=== PATIENT | male | born 1970 | race Caucasian/White ===

== ENCOUNTER 2016-09-18 | Emergency (ER) | payer BC ==
--- NOTE | 2016-09-18 17:03 | ED ---
General Adult HPI - General Chief complaint: Abdominal Pain Stated complaint: Kidney Stone Time Seen by Provider: 09/18/16 16:47 Source: patient, RN notes reviewed Mode of arrival: ambulatory Limitations: no limitations - History of Present Illness Initial comments: Chief complaint and history of present illness is a 46-year-old male to complaint of probably having passed a kidney stone just prior to coming to emergency room. The patient reports for the past several days to week been having left flank discomfort twice during this past week became diaphoretic with increased pain and nausea but no vomiting. Today he became significantly worse and he was coming to the hospital certainly at the hospital he reports the pain stopped. The patient did urinate in the urine sample he provided there was a small speck which could've been the stone. Patient otherwise denying any pain at this time no nausea no vomiting. - Related Data Previous Rx's Medication Instructions Recorded Ondansetron Odt [Zofran ODT] 4 mg PO Q8HR PRN #10 tab 09/18/16 Allergies Allergy/AdvReac Type Severity Reaction Status Date / Time Penicillins Allergy Rash/Hives Verified 09/18/16 16:53 Review of Systems ROS Statement: Those systems with pertinent positive or pertinent negative responses have been documented in the HPI. Review of systems no complaint of headache chest pain shows breath GI/ problems this time. All systems reviewed. Past medical problems significant only for kidney stones on several occasions. He also had bariatric surgery results 200 pounds in the past 2 years. The patient also a vegetarian. ALLERGIES to penicillin slight rash. Family history kidney stones. Patient denies smoking drinks alcohol rarely socially. ROS Other: All systems not noted in ROS Statement are negative. Past Medical History Additional Past Medical History / Comment(s): kidney stones History of Any Multi-Drug Resistant Organisms: None Reported Past Surgical History: Bariatric Surgery Past Psychological History: No Psychological Hx Reported Smoking Status: Never smoker Past Alcohol Use History: None Reported, Rare Past Drug Use History: None Reported General Exam - General Exam Comments Initial Comments: General: The patient is awake and alert, in no distress, and does not appear acutely ill. States he thinks the stone has passed into the bladder. Denying flank pain at this time. Vital signs temp 98.2 pulse 60 her story rate 16 pulse ox on percent room air blood pressure 130/82. Mildly elevated systolic and diastolic noted. The patient just passed a kidney stone. Cardiovascular: There is a regular rate and rhythm. No murmur, rub or gallop is appreciated. Respiratory: Lungs are clear to auscultation, respirations are non-labored, breath sounds are equal. No wheezes, stridor, rales, or rhonchi. Gastrointestinal: Soft, non-distended, non-tender abdomen without masses or organomegaly noted. There is no rebound or guarding present. No CVA tenderness. Bowel sounds are unremarkable. Back: There is no tenderness to palpation in the midline. There is no obvious deformity. No rashes noted. Limitations: no limitations Course Vital Signs 09/18/16 16:38 Temperature 98.2 F Pulse Rate 60 Respiratory 16 Rate Blood Pressure 130/82 O2 Sat by Pulse 100 Oximetry Medical Decision Making - Medical Decision Making At this time nothing needs to be done. The patient's feeling better he's well versed in kidney stone pain and passing kidney stones. The patient be given a prescription for Zofran to be taken as needed. He is not requesting any pain medication. He states 200 mg of Motrin is usually only needs. Advised to follow-up with family physician return emergency room as needed. Disposition Clinical Impression: Ureterolithiasis Disposition: HOME SELF-CARE Condition: Good Instructions: Kidney Stones (ED), Renal Colic (ED) Additional Instructions: Continue with fluids continue with medications continue straining urine. Return as needed. Prescriptions: Ondansetron Odt [Zofran ODT] 4 mg PO Q8HR PRN #10 tab PRN Reason: Nausea Time of Disposition: 17:03
== END 2016-09-18 17:17 | disposition home or self-care (01) ==
CPT/HCPCS: 99283

== ENCOUNTER 2017-12-12 20:39 | Emergency (ER) | payer BC ==
[2017-12-12 20:50] VITALS: BP 128/87; PULSE 67; RESP 18; TEMP 98.2
--- NOTE | 2017-12-12 21:09 | ED ---
General Adult HPI - General Chief complaint: Extremity Injury, Lower Stated complaint: left knee injury Time Seen by Provider: 12/12/17 20:56 Source: patient, RN notes reviewed Mode of arrival: wheelchair Limitations: no limitations - History of Present Illness Initial comments: 47 yo male presents to the ER with cc of left knee pain. She tweaked his knee about a week ago and today he tweaked it again. He states that he had x-rays today that were negative. He states that he tweaked this it again and felt a pop. Pain is moderate worse to walking and bearing weight tonight is wondering if he could possibly get ortho referral and a prescription for crutches. He denies any pain medication. He states that he has pain to the medial aspect of the knee. There is no trauma he just felt a pop when he went to stand up. Patient denies other symptoms at this time. Patient denies any recent fever, chills, shortness of breath, chest pain, back pain, abdominal pain, nausea vomiting, numbness or tingling, dysuria or hematuria, constipation or diarrhea, headaches or visual changes, or any other current symptoms. - Related Data Home Medications Medication Instructions Recorded Confirmed No Known Home Medications [No 12/12/17 12/12/17 Known Home Medications] Allergies Allergy/AdvReac Type Severity Reaction Status Date / Time Penicillins Allergy Rash/Hives Verified 12/12/17 20:50 Review of Systems ROS Statement: Those systems with pertinent positive or pertinent negative responses have been documented in the HPI. ROS Other: All systems not noted in ROS Statement are negative. Past Medical History Additional Past Medical History / Comment(s): kidney stones History of Any Multi-Drug Resistant Organisms: None Reported Past Surgical History: Bariatric Surgery Past Psychological History: No Psychological Hx Reported Smoking Status: Never smoker Past Alcohol Use History: Rare Past Drug Use History: None Reported General Exam - General Exam Comments Initial Comments: General: The patient is awake and alert, in no distress, and does not appear acutely ill. Neck: The neck is supple, there is no tenderness. Cardiovascular: There is a regular rate and rhythm. No murmur, rub or gallop is appreciated. Respiratory: Lungs are clear to auscultation, respirations are non-labored, breath sounds are equal. No wheezes, stridor, rales, or rhonchi. Musculoskeletal: Sensation intact with 2+ pulses throughout the left lower extremity. Full range of motion of left hip. Patient has pain with range of motion of left knee and pain along the medial aspect. No laxity noted. Full range of motion of left ankle. Neurological: CN II-XII intact, There are no obvious motor or sensory deficits. Coordination appears grossly intact. Speech is normal. Skin: Skin is warm and dry and no rashes or lesions are noted. Psychiatric: Normal mood and affect. Limitations: no limitations Course Vital Signs 12/12/17 20:48 Temperature 98.2 F Pulse Rate 67 Respiratory 18 Rate Blood Pressure 128/87 O2 Sat by Pulse 98 Oximetry Medical Decision Making - Medical Decision Making 47-year-old male presents to the emergency department with a chief complaint of left knee sprain. An x-ray earlier today we did discuss that he most likely needs an MRI and we discussed that he needs to follow-up with orthopedic. We will write him for crutches. We did offer pain medication. He does not want have this done. All questions have been answered. This time we will be discharged. Disposition Clinical Impression: Left knee sprain Disposition: HOME SELF-CARE Condition: Stable Instructions: Knee Sprain (ED) Additional Instructions: Please use medication as discussed. Please follow up with family doctor if symptoms have not improved over the next two days. Please return to the emergency room if your symptoms increase or worsen or for any other concerns. Referrals: Yung Gallegos MD [STAFF PHYSICIAN] - 1-2 days Time of Disposition: 21:08
== END 2017-12-12 21:16 | disposition home or self-care (01) ==
LOC: EC 20:39
DX: S83.92XA Sprain of unspecified site of left knee, initial encounter (principal); Z88.0 Allergy status to penicillin; X50.1XXA Overexertion from prolonged static or awkward postures, initial encounter
CPT/HCPCS: 99283

== ENCOUNTER 2019-05-12 18:52 | Emergency (ER) | payer BC ==
[2019-05-12 19:19] VITALS: TEMP 98.3
[2019-05-12] MEDS ORDERED: TAMSULOSIN 0.4 MG CAP.ER.24H PO STA (20:17)
--- NOTE | 2019-05-12 20:32 | ED ---
Abdominal Pain HPI - General Chief Complaint: Abdominal Pain Stated Complaint: kidney stones Time Seen by Provider: 05/12/19 19:43 Source: patient Mode of arrival: ambulatory Limitations: no limitations - History of Present Illness Initial Comments: 49-year-old male patient presents to the emergency department today for evaluation of left flank pain. Patient states he has had the pain for the last 2 days. Patient states today he developed increasing pressure to the suprapubic region. States his pain to the flank has improved. States he did take a Flomax today however the pelvis for 2 years. Denies taking any pain medication for his symptoms. Denies fever or chills. Denies nausea, vomiting, constipation, diarrhea. Denies any history of abdominal surgery. Patient states he did see a urologist one time in the past but is usually able to pass his kidney stones on his own. Patient denies any recent rash, cough, shortness breath, chest pain, numbness, tingling, dizziness, weakness, headache, visual changes, or any other complaints. - Related Data Home Medications Medication Instructions Recorded Confirmed Chanca David Drops 1 dropper PO DAILY 05/12/19 05/12/19 Tamsulosin [Flomax] 0.4 mg PO ONCE 05/12/19 05/12/19 Previous Rx's Medication Instructions Recorded Ibuprofen [Motrin] 600 mg PO Q8HR PRN #30 tab 05/12/19 Ondansetron [Zofran ODT] 4 mg PO Q8HR PRN #10 tab 05/12/19 Tamsulosin HCl [Flomax] 0.4 mg PO DAILY #7 cap 05/12/19 Allergies Allergy/AdvReac Type Severity Reaction Status Date / Time Penicillins Allergy Rash/Hives Verified 05/12/19 19:49 Review of Systems ROS Statement: Those systems with pertinent positive or pertinent negative responses have been documented in the HPI. ROS Other: All systems not noted in ROS Statement are negative. Past Medical History Additional Past Medical History / Comment(s): kidney stones History of Any Multi-Drug Resistant Organisms: None Reported Past Surgical History: Bariatric Surgery Past Psychological History: No Psychological Hx Reported Smoking Status: Never smoker Past Alcohol Use History: Rare Past Drug Use History: None Reported General Exam Limitations: no limitations General appearance: alert, in no apparent distress, other (This is a well- developed, well-nourished adult male patient in no acute distress. Vital signs upon presentation are temperature 98.3F, pulse 64, respirations 18, blood pressure 151/92, pulse ox 98% on room air.) Eye exam: Present: normal appearance, PERRL, EOMI. Absent: scleral icterus, conjunctival injection, periorbital swelling ENT exam: Present: normal exam, normal oropharynx, mucous membranes moist Respiratory exam: Present: normal lung sounds bilaterally. Absent: respiratory distress, wheezes, rales, rhonchi, stridor Cardiovascular Exam: Present: regular rate, normal rhythm, normal heart sounds. Absent: systolic murmur, diastolic murmur, rubs, gallop, clicks GI/Abdominal exam: Present: soft, normal bowel sounds. Absent: distended, tenderness, guarding, rebound, rigid Back exam: Present: normal inspection. Absent: CVA tenderness (R), CVA tenderness (L) Neurological exam: Present: alert, oriented X3, CN II-XII intact Psychiatric exam: Present: normal affect, normal mood Skin exam: Present: warm, dry, intact, normal color. Absent: rash Course Vital Signs 05/12/19 05/12/19 19:16 21:44 Temperature 98.3 F Pulse Rate 64 60 Respiratory 18 14 Rate Blood Pressure 151/92 114/75 O2 Sat by Pulse 98 98 Oximetry Medical Decision Making - Medical Decision Making 49-year-old male patient presented to the emergency department today for evaluation of left flank pain. Patient has history of kidney stones and symptoms are similar. Labs reviewed and are unremarkable. Urinalysis did show large amount of red blood cells in the urine consistent with kidney stone. Patient is currently pain-free. He did refuse IV and IV fluids. He'll be discharged home with prescription for Flomax, ibuprofen, and Zofran. He is instructed to follow-up with urology for further evaluation as soon as possible is instructed to follow-up with his primary care physician for recheck in 1-2 days. Return parameters were discussed in detail. He verbalizes understanding and agrees with this plan. - Lab Data Result diagrams: 05/12/19 20:36 05/12/19 20:35 Lab Results 05/12/19 05/12/19 05/12/19 Range/Units 20:35 20:35 20:36 WBC 6.6 (3.8-10.6) k/uL RBC 5.13 (4.30-5.90) m/uL Hgb 15.1 (13.0-17.5) gm/dL Hct 44.9 (39.0-53.0) % MCV 87.6 (80.0-100.0) fL MCH 29.4 (25.0-35.0) pg MCHC 33.5 (31.0-37.0) g/dL RDW 13.3 (11.5-15.5) % Plt Count 183 (150-450) k/uL Neutrophils % 55 % Lymphocytes % 30 % Monocytes % 6 % Eosinophils % 6 % Basophils % 1 % Neutrophils # 3.7 (1.3-7.7) k/uL Lymphocytes # 1.9 (1.0-4.8) k/uL Monocytes # 0.4 (0-1.0) k/uL Eosinophils # 0.4 (0-0.7) k/uL Basophils # 0.1 (0-0.2) k/uL Sodium 141 (137-145) mmol/L Potassium 4.3 (3.5-5.1) mmol/L Chloride 106 (98-107) mmol/L Carbon Dioxide 23 (22-30) mmol/L Anion Gap 12 mmol/L BUN 17 (9-20) mg/dL Creatinine 0.77 (0.66-1.25) mg/dL Est GFR (CKD-EPI)AfAm >90 (>60 ml/min/1.73 sqM) Est GFR (CKD-EPI)NonAf >90 (>60 ml/min/1.73 sqM) Glucose 97 (74-99) mg/dL Calcium 9.6 (8.4-10.2) mg/dL Total Bilirubin 0.6 (0.2-1.3) mg/dL AST 20 (17-59) U/L ALT 43 (21-72) U/L Alkaline Phosphatase 58 (38-126) U/L Total Protein 7.1 (6.3-8.2) g/dL Albumin 4.4 (3.5-5.0) g/dL Amylase 65 (30-110) U/L Lipase 217 (23-300) U/L Urine Color Yellow Urine Appearance Clear (Clear) Urine pH 6.5 (5.0-8.0) Ur Specific [place] 1.015 (1.001-1.035) Urine Protein Negative (Negative) Urine Glucose (UA) Negative (Negative) Urine Ketones Negative (Negative) Urine Blood Large H (Negative) Urine Nitrite Negative (Negative) Urine Bilirubin Negative (Negative) Urine Urobilinogen <2.0 (<2.0) mg/dL Ur Leukocyte Esterase Negative (Negative) Urine RBC >182 H (0-5) /hpf Urine WBC 1 (0-5) /hpf Ur Squamous Epith Cells <1 (0-4) /hpf Urine Bacteria Moderate H (None) /hpf Urine Mucus Rare H (None) /hpf Disposition Clinical Impression: Kidney stone on left side Disposition: HOME SELF-CARE Condition: Good Instructions (If sedation given, give patient instructions): Kidney Stones (ED), How to Strain Your Urine (ED) Additional Instructions: Increase fluids. Take medications as directed. Follow-up with the primary care physician for recheck in 1-2 days. Follow-up with urology as needed. Return to the emergency department immediately for any new, worsening, or concerning symptoms. Prescriptions were sent to [facility]. Prescriptions: Tamsulosin HCl [Flomax] 0.4 mg PO DAILY #7 cap Ibuprofen [Motrin] 600 mg PO Q8HR PRN #30 tab PRN Reason: Pain Ondansetron [Zofran ODT] 4 mg PO Q8HR PRN #10 tab PRN Reason: Nausea Is patient prescribed a controlled substance at d/c from ED?: No Referrals: Nonstaff,Physician [Primary Care Provider] - 1-2 days Murali Isaac MD [STAFF PHYSICIAN] - 1-2 days Time of Disposition: 21:35
[2019-05-12 20:48] LABS: Basophils # (A) 0.1 k/uL (0-0.2); Basophils % (A) 1 %; Eosinophils # (A) 0.4 k/uL (0-0.7); Eosinophils % (A) 6 %; HCT 44.9 % (39.0-53.0); HGB 15.1 gm/dL (13.0-17.5); Lymphocytes # (A) 1.9 k/uL (1.0-4.8); Lymphocytes % (A) 30 %; MCH 29.4 pg (25.0-35.0); MCHC 33.5 g/dL (31.0-37.0); MCV 87.6 fL (80.0-100.0); Mean Platelet Volume 7.6; Monocytes # (A) 0.4 k/uL (0-1.0); Monocytes % (A) 6 %; Neutrophils # (A) 3.7 k/uL (1.3-7.7); Neutrophils % (A) 55 %; Platelet Count 183 k/uL (150-450); RBC 5.13 m/uL (4.30-5.90); RDW 13.3 % (11.5-15.5); WBC 6.6 k/uL (3.8-10.6)
[2019-05-12 20:54] LABS: Appearance,Urine Clear (Clear); Bacteria,Urine Moderate /hpf; Bilirubin,Urine Negative (Negative); Blood,Urine Large (Negative); Color,Urine Yellow; Glucose,Urine (UA) Negative (Negative); Ketones,Urine Negative (Negative); Leukocyte Esterase,Urine Negative (Negative); Mucus,Urine Rare /hpf; Nitrite,Urine Negative (Negative); PH, Urine 6.5 (5.0-8.0); Protein,Urine Negative (Negative); RBC,Urine >182 /hpf (0-5); Specific Gravity,Urine 1.015 (1.001-1.035); Squamous Epithelial Cell,Urine <1 /hpf (0-4); Urobilinogen,Urine <2.0 mg/dL (<2.0); WBC,Urine 1 /hpf (0-5)
[2019-05-12 21:04] LABS: ALT 43 U/L (21-72); AST 20 U/L (17-59); African American GFR (CKD) >90 (>60 ml/min/1.73 sqM); Albumin 4.4 g/dL (3.5-5.0); Alkaline Phosphatase 58 U/L (38-126); Amylase 65 U/L (30-110); Anion Gap 12 mmol/L; Blood Urea Nitrogen 17 mg/dL (9-20); Calcium 9.6 mg/dL (8.4-10.2); Carbon Dioxide 23 mmol/L (22-30); Chloride 106 mmol/L (98-107); Glucose 97 mg/dL (74-99); Potassium 4.3 mmol/L (3.5-5.1); Sodium 141 mmol/L (137-145); Total Bilirubin 0.6 mg/dL (0.2-1.3); Total Protein 7.1 g/dL (6.3-8.2)
[2019-05-12 21:45] VITALS: BP 114/75; PULSE 60; RESP 14
== END 2019-05-12 21:43 | disposition home or self-care (01) ==
LOC: EC 18:52
DX: N20.0 Calculus of kidney (principal); Z88.0 Allergy status to penicillin; Z79.899 Other long term (current) drug therapy; Z98.84 Bariatric surgery status
CPT/HCPCS: 36415; 80053; 81001; 82150; 83690; 85025; 99284

== ENCOUNTER 2021-11-07 18:36 | Inpatient (IN) | payer BC ==
[2021-11-07] MEDS ORDERED: SODIUM CHLORIDE 0.9% 1,000 ML IV ONE (19:25)
[2021-11-07 20:41] LABS: Basophils # (A) 0.1 k/uL (0-0.2); Basophils % (A) 1 %; Eosinophils # (A) 0.1 k/uL (0-0.7); Eosinophils % (A) 2 %; HCT 46.6 % (39.0-53.0); HGB 15.7 gm/dL (13.0-17.5); Lymphocytes # (A) 1.3 k/uL (1.0-4.8); Lymphocytes % (A) 15 %; MCH 30.8 pg (25.0-35.0); MCHC 33.8 g/dL (31.0-37.0); MCV 91.2 fL (80.0-100.0); Monocytes # (A) 0.6 k/uL (0-1.0); Monocytes % (A) 6 %; Neutrophils # (A) 6.6 k/uL (1.3-7.7); Neutrophils % (A) 75 %; Platelet Count 148 k/uL (150-450); RBC 5.11 m/uL (4.30-5.90); RDW 13.6 % (11.5-15.5); WBC 8.8 k/uL (3.8-10.6)
[2021-11-07 20:49] LABS: ALT 14 U/L (4-49); AST 20 U/L (17-59); African American GFR (CKD) >90 (>60 ml/min/1.73 sqM); Albumin 4.3 g/dL (3.5-5.0); Alkaline Phosphatase 71 U/L (38-126); Anion Gap 9 mmol/L; Blood Urea Nitrogen 25 mg/dL (9-20); Calcium 9.4 mg/dL (8.4-10.2); Carbon Dioxide 25 mmol/L (22-30); Chloride 105 mmol/L (98-107); Glucose 117 mg/dL (74-99); Non-African American GFR(CKD) 86 (>60 ml/min/1.73 sqM); Sodium 139 mmol/L (137-145); Total Bilirubin 0.9 mg/dL (0.2-1.3); Total Protein 7.5 g/dL (6.3-8.2)
--- NOTE | 2021-11-07 20:58 | ED ---
Arrhythmia/Palpitations HPI - General Chief Complaint: Arrhythmia/Palpitations Stated Complaint: Heart issues Time Seen by Provider: 11/07/21 19:24 Source: patient Mode of arrival: ambulatory Limitations: no limitations - History of Present Illness Initial Comments: Jose Luis is a 51-year-old male presents the ER today for evaluation of palpitations and lightheadedness. Patient reports that he was walking from his car into the house today and he became very lightheaded felt like he was going to pass out. Patient did a EKG off of his alcohol watching did notice some PVCs. Patient had another episode of feeling lightheaded and decided to come to the ER for evaluation. Patient denies any chest pain or shortness of breath. Patient reports that he has tested positive for over 3 times in the past but is now fully vaccinated. Patient has no history of coronary artery disease. He has reported palpitations in the past but has no formal diagnosis. - Related Data Previous Rx's Medication Instructions Recorded Ibuprofen [Motrin] 600 mg PO Q8HR PRN #30 tab 05/12/19 Allergies Allergy/AdvReac Type Severity Reaction Status Date / Time Penicillins Allergy Rash/Hives Verified 11/07/21 19:41 Review of Systems ROS Statement: Those systems with pertinent positive or pertinent negative responses have been documented in the HPI. ROS Other: All systems not noted in ROS Statement are negative. Past Medical History Past Medical History: No Reported History Additional Past Medical History / Comment(s): kidney stones History of Any Multi-Drug Resistant Organisms: None Reported Past Surgical History: Bariatric Surgery Past Psychological History: No Psychological Hx Reported Smoking Status: Never smoker Past Alcohol Use History: Rare Past Drug Use History: None Reported General Exam - General Exam Comments Initial Comments: Physical Exam GENERAL: Patient is well-developed and well-nourished. Patient is nontoxic and well- hydrated and is in no distress. HENT: Normocephalic, Atraumatic. EYES: PERRL, EOMI PULMONARY: Unlabored respirations. No audible rales rhonchi or wheezing was noted. CARDIOVASCULAR: There is a regular rate and rhythm without any murmurs gallops or rubs. ABDOMEN: Soft and nontender with normal bowel sounds. SKIN: Skin is clear with no lesions or rashes and otherwise unremarkable. : Deferred NEUROLOGIC: Patient is alert and oriented x3. Moving all extremities spontaneously MUSCULOSKELETAL: Normal extremities with adequate strength and full range of motion. No lower extremity swelling or edema. No calf tenderness. PSYCHIATRIC: Normal psychiatric evaluation. Limitations: no limitations Course Vital Signs 11/07/21 18:48 Temperature 97.9 F Pulse Rate 109 H Respiratory 20 Rate Blood Pressure 149/96 O2 Sat by Pulse 94 L Oximetry EKG Findings - EKG Comments: EKG Findings:: EKG was obtained due to complaint of palpitations, EKG obtained at 2019 rate is 91 rhythm is sinus, normal axis, normal intervals, W[place] 165, QRS 97, QTC 375. There are no acute ST elevations or depressions no evidence of ischemia or infarction. There is no arrhythmia or ectopic beats noted. Repeat EKG was obtained due to elevated troponin, repeat EKG at 2113, rate is 87, rhythm is against this is a normal axis, normal intervals, WV 166, QRS 90 [address]Tc [address] elevations or depressions. Upon further review and [id number] pattern is present. Medical Decision Making - Medical Decision Making The patient was seen and evaluated, history is obtained from the patient, patient mildly tachycardic, no hypoxia had episodes of tachycardia, palpitations and lightheadedness Labs and EKG were obtained Troponin is elevated, PE study was ordered and results with evidence of likely saddle pulmonary wasn't with no evidence of right heart strain CT results as well as labs and vital signs were discussed with Dr. Barahona who recommended admission, high-dose heparin, echo in the morning, no intervention indicated at this time Patient care was discussed with Dr. meredith who accepts the admission - Lab Data Result diagrams: 11/07/21 21:48 11/07/21 20:30 Lab Results 11/07/21 11/07/21 11/07/21 Range/Units 20:30 20:30 20:30 WBC 8.8 (3.8-10.6) k/uL RBC 5.11 (4.30-5.90) m/uL Hgb 15.7 (13.0-17.5) gm/dL Hct 46.6 (39.0-53.0) % MCV 91.2 (80.0-100.0) fL MCH 30.8 (25.0-35.0) pg MCHC 33.8 (31.0-37.0) g/dL RDW 13.6 (11.5-15.5) % Plt Count 148 L (150-450) k/uL MPV 8.0 Neutrophils % 75 % Lymphocytes % 15 % Monocytes % 6 % Eosinophils % 2 % Basophils % 1 % Neutrophils # 6.6 (1.3-7.7) k/uL Lymphocytes # 1.3 (1.0-4.8) k/uL Monocytes # 0.6 (0-1.0) k/uL Eosinophils # 0.1 (0-0.7) k/uL Basophils # 0.1 (0-0.2) k/uL PT (9.0-12.0) sec INR (<1.2) APTT (22.0-30.0) sec D-Dimer 10.95 H (<0.60) mg/L FEU Sodium 139 (137-145) mmol/L Potassium 4.0 (3.5-5.1) mmol/L Chloride 105 (98-107) mmol/L Carbon Dioxide 25 (22-30) mmol/L Anion Gap 9 mmol/L BUN 25 H (9-20) mg/dL Creatinine 1.02 (0.66-1.25) mg/dL Est GFR (CKD-EPI)AfAm >90 (>60 ml/min/1.73 sqM) Est GFR (CKD-EPI)NonAf 86 (>60 ml/min/1.73 sqM) Glucose 117 H (74-99) mg/dL Calcium 9.4 (8.4-10.2) mg/dL Total Bilirubin 0.9 (0.2-1.3) mg/dL AST 20 (17-59) U/L ALT 14 (4-49) U/L Alkaline Phosphatase 71 (38-126) U/L Troponin I (0.000-0.034) ng/mL NT-Pro-B Natriuret Pep pg/mL Total Protein 7.5 (6.3-8.2) g/dL Albumin 4.3 (3.5-5.0) g/dL TSH 4.790 H (0.465-4.680) mIU/L 11/07/21 11/07/21 11/07/21 Range/Units 20:30 20:30 21:48 WBC 9.4 (3.8-10.6) k/uL RBC 5.09 (4.30-5.90) m/uL Hgb 15.8 (13.0-17.5) gm/dL Hct 47.1 (39.0-53.0) % MCV 92.4 (80.0-100.0) fL MCH 31.0 (25.0-35.0) pg MCHC 33.5 (31.0-37.0) g/dL RDW 13.6 (11.5-15.5) % Plt Count 173 (150-450) k/uL MPV 8.5 Neutrophils % 76 % Lymphocytes % 16 % Monocytes % 5 % Eosinophils % 2 % Basophils % 1 % Neutrophils # 7.1 (1.3-7.7) k/uL Lymphocytes # 1.5 (1.0-4.8) k/uL Monocytes # 0.5 (0-1.0) k/uL Eosinophils # 0.2 (0-0.7) k/uL Basophils # 0.1 (0-0.2) k/uL PT (9.0-12.0) sec INR (<1.2) APTT (22.0-30.0) sec D-Dimer (<0.60) mg/L FEU Sodium (137-145) mmol/L Potassium (3.5-5.1) mmol/L Chloride (98-107) mmol/L Carbon Dioxide (22-30) mmol/L Anion Gap mmol/L BUN (9-20) mg/dL Creatinine (0.66-1.25) mg/dL Est GFR (CKD-EPI)AfAm (>60 ml/min/1.73 sqM) Est GFR (CKD-EPI)NonAf (>60 ml/min/1.73 sqM) Glucose (74-99) mg/dL Calcium (8.4-10.2) mg/dL Total Bilirubin (0.2-1.3) mg/dL AST (17-59) U/L ALT (4-49) U/L Alkaline Phosphatase (38-126) U/L Troponin I 0.614 H* (0.000-0.034) ng/mL NT-Pro-B Natriuret Pep 88 pg/mL Total Protein (6.3-8.2) g/dL Albumin (3.5-5.0) g/dL TSH (0.465-4.680) mIU/L 02/21/22 Range/Units 21:50 WBC (3.8-10.6) k/uL RBC (4.30-5.90) m/uL Hgb (13.0-17.5) gm/dL Hct (39.0-53.0) % MCV (80.0-100.0) fL MCH (25.0-35.0) pg MCHC (31.0-37.0) g/dL RDW (11.5-15.5) % Plt Count (150-450) k/uL MPV Neutrophils % % Lymphocytes % % Monocytes % % Eosinophils % % Basophils % % Neutrophils # (1.3-7.7) k/uL Lymphocytes # (1.0-4.8) k/uL Monocytes # (0-1.0) k/uL Eosinophils # (0-0.7) k/uL Basophils # (0-0.2) k/uL PT 10.8 (9.0-12.0) sec INR 1.0 (<1.2) APTT 23.4 (22.0-30.0) sec D-Dimer (<0.60) mg/L FEU Sodium (137-145) mmol/L Potassium (3.5-5.1) mmol/L Chloride (98-107) mmol/L Carbon Dioxide (22-30) mmol/L Anion Gap mmol/L BUN (9-20) mg/dL Creatinine (0.66-1.25) mg/dL Est GFR (CKD-EPI)AfAm (>60 ml/min/1.73 sqM) Est GFR (CKD-EPI)NonAf (>60 ml/min/1.73 sqM) Glucose (74-99) mg/dL Calcium (8.4-10.2) mg/dL Total Bilirubin (0.2-1.3) mg/dL AST (17-59) U/L ALT (4-49) U/L Alkaline Phosphatase (38-126) U/L Troponin I (0.000-0.034) ng/mL NT-Pro-B Natriuret Pep pg/mL Total Protein (6.3-8.2) g/dL Albumin (3.5-5.0) g/dL TSH (0.465-4.680) mIU/L Critical Care Time Critical Care Time: Yes Total Critical Care Time: 30 Critical Care Time: Critical care time was exclusive of separately billable procedures and treating other patients and teaching time. Critical care was necessary to treat or prevent imminent or life-threatening deterioration. Given the critical condition in which the patient arrived, the patient was immediately assessed by myself and the nurse, and cardiac monitoring initiated due to the potential for rapid decompensation of the patient's clinical condition. During the course of the patients stay, I spent a considerable amount of time at the bedside performing serial re-evaluations of the patient's hemodynamic and clinical status because of the recognized potential threat to life or limb in this condition. I then had a chance to review not only all of t he available current laboratory and radiographic studies obtained today, but I also reviewed old records available to me at the time. Additionally, any ancillary information available including wrecking mechanic records were reviewed. Sequential vital signs were obtained. Disposition Clinical Impression: Pulmonary embolism, Elevated troponin Disposition: ADMITTED IP TO THIS [facility] Condition: Serious Is patient prescribed a controlled substance at d/c from ED?: No Referrals: Lee Bran MD [Primary Care Provider] - 1-2 days
[2021-11-07] MEDS ORDERED: HEPARIN SODIUM 1,000 UN/ML (10ML VL) IV ONE ×2 (21:10→21:43)
[2021-11-07] MEDS ORDERED: HEPARIN SODIUM 1,000 UN/ML (10ML VL) IV PRN (21:10)
[2021-11-07] MEDS ORDERED: HEPARIN SOD,PORK IN 0.45% NACL 25,000 UNIT in 0.45% NACL 1 250ML.BAG IV SCH (21:15)
--- NOTE | 2021-11-07 21:48 | CT ---
EXAMINATION TYPE: CT chest angio for PE DATE OF EXAM: 11/07/2021 COMPARISON: None available HISTORY: Near syncope, elevated trop CT DLP: 686.1 mGycm Automated exposure control for dose reduction was used. CONTRAST: CT Chest for pulmonary embolism performed with with IV Contrast, patient injected with 100 mL of Isov ue 370. MIPS reformats were provided and reviewed. FINDINGS: LUNGS: The lungs are grossly clear, there is no concerning parenchymal mass or nodule identified. T here is no pleural effusion or pneumothorax seen. The tracheobronchial tree is patent. MEDIASTINUM: There is satisfactory enhancement of the pulmonary artery and its branches. There are mu ltiple filling defects involving the bilateral main pulmonary arteries, extending to the, lobar, segm ental and subsegmental branches throughout the lungs. Findings are most pronounced in the lower lobes . There are no greater than 1 cm hilar or mediastinal lymph nodes. No pericardial effusion is seen . OTHER: Postsurgical changes involving the stomach and gastroesophageal junction seen. Otherwise no a dditional significant abnormality is seen. IMPRESSION: Acute bilateral PE with saddle emboli and moderate clot burden. Otherwise no significant air space process. Findings were reported to caring ED physician by me at time of dictation.
[2021-11-07 21:56] LABS: Basophils # (A) 0.1 k/uL (0-0.2); Basophils % (A) 1 %; Eosinophils # (A) 0.2 k/uL (0-0.7); Eosinophils % (A) 2 %; HCT 47.1 % (39.0-53.0); HGB 15.8 gm/dL (13.0-17.5); Lymphocytes # (A) 1.5 k/uL (1.0-4.8); Lymphocytes % (A) 16 %; MCHC 33.5 g/dL (31.0-37.0); MCV 92.4 fL (80.0-100.0); Mean Platelet Volume 8.5; Monocytes # (A) 0.5 k/uL (0-1.0); Monocytes % (A) 5 %; Neutrophils # (A) 7.1 k/uL (1.3-7.7); Neutrophils % (A) 76 %; Platelet Count 173 k/uL (150-450); RBC 5.09 m/uL (4.30-5.90); RDW 13.6 % (11.5-15.5); WBC 9.4 k/uL (3.8-10.6)
[2021-11-07 22:10] LABS: Partial Thromboplastin Time 23.4 sec (22.0-30.0); Prothrombin Time 10.8 sec (9.0-12.0)
[2021-11-07] MEDS ORDERED: NALOXONE 0.4 MG/ML 1 ML VIAL IV PRN (22:10)
[2021-11-07] MEDS: HEPARIN SOD,PORK IN 0.45% NACL 25,000 UNIT in 0.45% NACL 1 250ML.BAG IV SCH (22:16)
[2021-11-08 00:24] LABS: T4, Free (Free Thyroxine) 1.22 ng/dL (0.78-2.19)
--- NOTE | 2021-11-08 00:28 | US ---
EXAMINATION TYPE: US venous doppler duplex LE DATE OF EXAM: 11/07/2021 23:30 COMPARISON: NONE CLINICAL HISTORY: leg swelling. Patient states he had right calf pain 1 week ago. Patient came in tod ay and bilateral PEs were found. SIDE PERFORMED: Bilateral TECHNIQUE: The lower extremity deep venous system is examined utilizing real time linear array sonog sheri with graded compression, doppler sonography and color-flow sonography. VESSELS IMAGED: Common Femoral Vein Deep Femoral Vein Greater Saphenous Vein * Femoral Vein Popliteal Vein Small Saphenous Vein * Proximal Calf Veins (* superficial vessels) Right Leg: Positive for DVT within the popliteal, PTVs, and peroneal veins of the right lower extrem ity. Left Leg: Negative for DVT IMPRESSION: There is evidence for acute deep vein thrombosis in the right leg in the popliteal and ca lf veins. No evidence of deep vein thrombosis in the left leg.
[2021-11-08 03:26] LABS: Basophils % (A) 1 %; Eosinophils # (A) 0.1 k/uL (0-0.7); Eosinophils % (A) 1 %; HCT 45.9 % (39.0-53.0); HGB 15.3 gm/dL (13.0-17.5); Lymphocytes # (A) 1.5 k/uL (1.0-4.8); Lymphocytes % (A) 17 %; MCH 30.3 pg (25.0-35.0); MCHC 33.3 g/dL (31.0-37.0); MCV 91.2 fL (80.0-100.0); Mean Platelet Volume 7.9; Monocytes # (A) 0.5 k/uL (0-1.0); Monocytes % (A) 6 %; Neutrophils # (A) 6.3 k/uL (1.3-7.7); Neutrophils % (A) 74 %; Platelet Count 160 k/uL (150-450); RBC 5.04 m/uL (4.30-5.90); WBC 8.4 k/uL (3.8-10.6)
[2021-11-08 03:32] LABS: INR 1.1 (<1.2); Partial Thromboplastin Time 93.9 sec (22.0-30.0); Prothrombin Time 11.4 sec (9.0-12.0)
[2021-11-08] MEDS ORDERED: ALTEPLASE 10 MG in SODIUM CHLORIDE 0.9% 90 ML IV ONE ×9 (08:35→19:00)
--- NOTE | 2021-11-08 09:18 | P.HPIM ---
History of Present Illness This is a pleasant 51 his old male with no significant past medical history. He is patient of Dr. Bran pt states that he came because of dyspnea of one-day duration with no coughing, he had a little of chest pain last night which she describes more as a fluttering but it improved after he was started on heparin. He denies any abdominal pain or nausea vomiting or diarrhea. No urinary complaints. No headache or weakness or numbness. No fever. He has been complaining of from right leg pain and he saw his surgeon about a week ago for his right knee pain. Right leg isn't swollen and warm. He denies smoking or illicit drugs, occasional alcohol Vitas looks stable and he is saturating 94% on room air. Slightly tachycardic and 109 and tachypneic at 20 Labs including CBC, INR, BMP and liver enzymes are unremarkable. Per is elevated at 10.9 Creatinine normal 1.0 Troponin elevated 0.6. TSH is slightly high at 4.7 with free T4 is pending. pompa virus not detected CTA of the chest: Acute bilateral pulmonary embolism with saddle emboli and moderate clot burden In the emergency room patient was started on heparin drip at vascular surgery team were consulted recommended to admit and continue with conservative management for now per ID team Review of Systems Review of systems CONSTITUTIONAL: No fever, no malaise, no fatigue. HEENT: No recent visual problems or hearing problems. Denied any sore throat. CARDIOVASCULAR: No orthopnea, PND, no palpitations, no syncope. PULMONARY: No chest wall tenderness breath, no cough, no hemoptysis. GASTROINTESTINAL: No diarrhea, no nausea, no vomiting, no abdominal pain. Normoactive bowel sounds. NEUROLOGICAL: No headaches, no weakness, no numbness. HEMATOLOGICAL: Denies any bleeding or petechiae. GENITOURINARY: Denies any burning micturition, frequency, or urgency. MUSCULOSKELETAL/RHEUMATOLOGICAL: Denies any joint pain, swelling, or any muscle pain. ENDOCRINE: Denies any polyuria or polydipsia. Past Medical History Past Medical History: No Reported History Additional Past Medical History / Comment(s): kidney stones History of Any Multi-Drug Resistant Organisms: None Reported Past Surgical History: Bariatric Surgery Past Psychological History: No Psychological Hx Reported Smoking Status: Never smoker Past Alcohol Use History: Rare Past Drug Use History: None Reported Medications and Allergies Home Medications Medication Instructions Recorded Confirmed Type Ibuprofen [Motrin] 600 mg PO Q8HR PRN #30 tab 05/12/19 11/07/21 Rx Allergies Allergy/AdvReac Type Severity Reaction Status Date / Time Penicillins Allergy Rash/Hives Verified 11/07/21 19:41 Physical Exam Vitals: Vital Signs Temp Pulse Resp BP Pulse Ox 11/08/21 08:42 92 18 98 11/08/21 07:27 98.4 F 91 18 156/99 98 11/08/21 04:56 98 F 82 18 138/102 96 11/08/21 01:03 91 16 128/107 100 11/07/21 18:48 97.9 F 109 H 20 149/96 94 L Intake and Output 11/07/21 11/08/21 11/08/21 22:59 06:59 14:59 Intake Total 145.283 Balance 145.283 Intake: Intake, IV Titration 145.283 Amount Heparin Sod,Pork in 0.45% 145.283 NaCl 25,000 unit In 0.45 % NaCl 1 250ml.bag @ 17. 7917 UNITS/KG/HR 23 mls/ hr IV .[id number] [facility] Rx#: [id number] Other: Weight 129.274 kg GENERAL: The patient is alert and oriented x3, not in any acute distress. Well developed, well nourished. HEENT: Pupils are round and equally reacting to light. EOMI. No scleral icterus. No conjunctival pallor. Normocephalic, atraumatic. No pharyngeal erythema. No thyromegaly. CARDIOVASCULAR: S1 and S2 present. No murmurs, rubs, or gallops. PULMONARY: Chest is clear to auscultation, no wheezing or crackles. ABDOMEN: Soft, nontender, nondistended, normoactive bowel sounds. No palpable organomegaly. MUSCULOSKELETAL: No joint swelling or deformity. EXTREMITIES: No cyanosis, clubbing, or pedal edema. NEUROLOGICAL: Gross neurological examination did not reveal any focal deficits. SKIN: No rashes. no petechiae. Results CBC & Chem 7: 11/08/21 03:09 11/07/21 20:30 Labs: Abnormal Lab Results - Last 24 Hours (Table) 11/07/21 11/07/21 11/07/21 Range/Units 20:30 20:30 20:30 Plt Count 148 L (150-450) k/uL APTT (22.0-30.0) sec D-Dimer 10.95 H (<0.60) mg/L FEU BUN 25 H (9-20) mg/dL Glucose 117 H (74-99) mg/dL Troponin I (0.000-0.034) ng/mL TSH 4.790 H (0.465-4.680) mIU/L 11/07/21 11/08/21 Range/Units 20:30 03:09 Plt Count (150-450) k/uL APTT 93.9 H (22.0-30.0) sec D-Dimer (<0.60) mg/L FEU BUN (9-20) mg/dL Glucose (74-99) mg/dL Troponin I 0.614 H* (0.000-0.034) ng/mL TSH (0.465-4.680) mIU/L Assessment and Plan Assessment: Acute bilateral pulmonary embolism elevated troponin, most likely secondary to PE Right leg swelling and warmth, secondary to right leg DVT Elevated d-dimer, secondary to above, Plan: This is a pleasant 51 years old male who presents with bilateral PE Continue with heparin drip and switched to a liquids when appropriate Check echocardiogram Vascular surgery team were consulted Consult pulmonary team, cardiology team consulted patient is counseled to follow up with community ambassador Dr. Jackson as an outpatient and he Labs and medication were reviewed.. Continue same treatment. Continue with symptomatic treatment. Resume home medication. Monitor lytes and vitals. DVT and GI prophylaxis. Further recommendations as per clinical course of the patient DVT prophylaxis: heparin GI Prophylaxis: Pepcid PT/OT: Pending Prognosis is guarded
--- NOTE | 2021-11-08 09:55 | ECHOF ---
Referral Reason:pulmonary embolism MEASUREMENTS -------- HEIGHT: 188.0 cm WEIGHT: 129.3 kg BP: RVIDd: 5.3 cm (< 3.3) IVSd: 1.2 cm (0.6 - 1.1) LVIDd: 4.8 cm (3.9 - 5.3) LVPWd: 1.3 cm (0.6 - 1.1) IVSs: 1.5 cm LVIDs: 3.6 cm LVPWs: 1.7 cm LA Diam: 3.5 cm (2.7 - 3.8) Ao Diam: 3.6 cm (2.0 - 3.7) AV Cusp: 1.9 cm (1.5 - 2.6) LA Diam: 3.7 cm (2.7 - 3.8) MV EXCURSION: 20.694 mm (> 18.000) MV EF SLOPE: 57 mm/s (70 - 150) EPSS: 0.5 cm MV E Jassi: 0.55 m/s MV DecT: 189 ms MV A Jassi: 0.64 m/s MV E/A Ratio: 0.85 RAP: 5.00 mmHg RVSP: 41.00 mmHg FINDINGS -------- Sinus rhythm. This was a technically adequate study. The left ventricular size is normal. There is borderline concentric left ventricular hypertrophy. Overall left ventricular systolic function is normal with, an EF between 55 - 60 %. The right ventricle is severely enlarged. The right ventricular systolic function is moderately imp aired. The right ventricular septal wall is flattened in diastole and systole which is consistent with right ventricular volume and pressure overload. Mcmillan sign noted The left atrial size is normal. The right atrial size is normal. The aortic valve is trileaflet, and appears structurally normal. No aortic stenosis or regurgitation. The mitral valve is normal. Mild mitral regurgitation is present. The tricuspid valve appears structurally normal. Mild tricuspid regurgitation present. There is m ild pulmonary hypertension. The right ventricular systolic pressure, as measured by Doppler, is 41. 00mmHg. Trace/mild (physiologic) pulmonic regurgitation. The aortic root size is normal. There is no pericardial effusion. CONCLUSIONS -------- 1. The left ventricular size is normal. 2. There is borderline concentric left ventricular hypertrophy. 3. Overall left ventricular systolic function is normal with, an EF between 55 - 60 %. 4. The right ventricle is severely enlarged. 5. The right ventricular systolic function is moderately impaired. 6. The right ventricular septal wall is flattened in diastole and systole which is consistent with r ight ventricular volume and pressure overload. 7. Mcmillan sign noted 8. The left atrial size is normal. 9. The aortic valve is trileaflet, and appears structurally normal. No aortic stenosis or regurgitati on. 10. Mild mitral regurgitation is present. 11. Mild tricuspid regurgitation present. 12. There is mild pulmonary hypertension. 13. Trace/mild (physiologic) pulmonic regurgitation. 14. There is no pericardial effusion. MANAGER PACKAGE: Lillie Dickey RDCS
[2021-11-08] MEDS: HEPARIN SOD,PORK IN 0.45% NACL 25,000 UNIT in 0.45% NACL 1 250ML.BAG IV SCH (10:42)
--- NOTE | 2021-11-08 10:45 | CONS ---
CONSULTATION Jose Luis Garcia is a 51-year-old gentleman who has history of previous obesity and has had a gastric sleeve operation and has done remarkably well. He has history of some orthopedic problems and was considering right knee intervention, but prior to that because of discomfort in the calf he went and saw an orthopedic surgeon and was then advised that it was not an orthopedic problem. However, he came into the hospital with dizziness, lightheadedness, near-syncope and shortness of breath, was found to have elevated D-dimer. Investigation including CT angiogram revealed pulmonary embolism, saddle embolism with a moderate clot burden. Echocardiogram revealed right ventricular enlargement. Patient is hemodynamically stable at this time. He is on a heparin drip. He feels better. Blood pressure is 130/80, pulse rate is 80 per minute. EKG revealed a sinus mechanism with a mild right ventricular conduction delay type picture and inferior ST and T-wave abnormality. Patient is on oxygen, comfortable. Oxygen saturation is good. He is resting comfortably at the time of my evaluation. He appears to have what seems to be a submassive pulmonary embolism with some moderate clot burden and right ventricular enlargement. PAST MEDICAL HISTORY: 1. History of obesity, status post gastric sleeve operation. 2. History of some degenerative joint disease, for which he was considering orthopedic surgery. ALLERGIES: PENICILLIN. MEDICATIONS: He takes ibuprofen p.r.n. PHYSICAL EXAMINATION: Blood pressure 130/80, pulse rate is about 80 per minute, regular. HEENT unremarkable. Fundus was not examined by me. Neck is supple. There is a 1 cm JVD. No carotid bruit. S1-S2 heard normally. No significant rub, murmur or gallop. Lungs are clear. Abdomen is soft, non-tender. Lower extremities reveal diminished pulses. Right lower extremity is slightly larger than the left. Pulses are normal. Central nervous system grossly within normal limits. Venous Doppler studies suggest DVT in the popliteal and peroneal veins of the right lower extremity. Left lower extremity is negative for DVT. IMPRESSION: 1. Acute bilateral pulmonary embolism. 2. Deep vein thrombosis, right lower extremity. 3. History of orthopedic interventions in his left knee in the past. RECOMMENDATIONS: I discussed with the patient and in detail. I will perform an EKOS procedure with thrombolysis by ultrasound and tPA infusion. Given the fact he had an unprovoked pulmonary embolism, will also seek a hematology evaluation for this patient. I discussed my thoughts in detail with the patient and his . Risks, benefits, options related to the procedure were explained. Will perform procedure this afternoon. Patient will be continued on IV heparin. PATRICIA / JAIMEE: [id number] /
--- NOTE | 2021-11-08 11:07 | P.CNPUL ---
<Celeste Roman - Last Filed: 11/08/21 10:47> History of Present Illness Consult date: 11/08/21 Requesting physician: Venkata E Sheet Reason for consult: dyspnea, pulmonary embolism, DVT Chief complaint: Dizziness, lightheadedness, shortness of breath History of present illness: This is a very pleasant 51-year-old male patient who follows with Dr. Bran as his primary care provider. He has a history of previous bariatric sleeve secondary to morbid obesity and had weight 415 pounds. 7 years later he is maintaining a weight of 165 pounds. He has a history of kidney stones. He has a history of CoVID infection 3 most recently in July 2021 minor symptoms and no hospitalizations. He has since been fully vaccinated by [place] not. He also has osteoarthritis with previous arthroplasty 3 in his left knee and was planning to have a right knee replacement soon. About 3 weeks ago he was having some more discomfort in his right knee that was felt to be secondary to the osteoarthritis. Yesterday however he developed pain going up into his right groin as well. He was having issues with dizziness and lightheadedness and shortness of breath. He presented here to the emergency room for the same. CT angiogram did confirm an acute bilateral PE with saddle emboli and moderate clot burden. Otherwise no significant airspace process. Dopplers of the lower extremity were positive for DVT within the popliteal, PT wheeze, and peroneal veins. He was initiated on a heparin drip. He is seen today in consultation in the emergency department. He is currently sitting up in the stretcher. Awake and alert in no acute distress. He is feeling a bit better today compared to yesterday. Breathing a bit easier. A little less discomfort. He is maintaining good O2 saturations in the 90s on room air. White count 8.4. Hemoglobin 15.3. D-dimer 10.95. Sodium 139. Potassium 4.0. Creatinine 1.02. Glucose 117. Troponin 0.614. ProBNP 88. TSH 4.79. Free T4 1 0.22. Dent virus by PCR not detected. Echocardiogram performed this morning did reveal severely enlarged right ventricle with moderately impaired right ventricular systolic function with ventral septal wall flattening consistent with right bert tricular volume pressure overload. The plan is for EKOS procedure today. Review of Systems REVIEW OF SYSTEMS: CONSTITUTIONAL: Positive for dizziness and lightheadedness. Denies any recent significant weight loss or weight gain. EYES: Denies change in vision. EARS, NOSE, MOUTH, THROAT: Denies headaches, denies sore throat. CARDIOVASCULAR: Denies chest pain, palpitations or syncopal episodes. RESPIRATORY: Positive for shortness of breath, no cough, congestion or hemopt ysis. GASTROINTESTINAL: Denies change in appetite, denies abdominal pain GENITOURINARY: Denies hematuria, denies infections. MUSKULOSKELETAL: Positive for right lower extremity pain. INTEGUMENTARY: Denies rash, denies eczema. NEUROLOGICAL: Denies recent memory loss, no recent seizure activity. PSYCHIATRIC: Denies anxiety, denies depression. HEMATOLOGIC/LYMPHATIC: Denies anemia, denies enlarged lymph nodes. Past Medical History Past Medical History: No Reported History Additional Past Medical History / Comment(s): kidney stones History of Any Multi-Drug Resistant Organisms: None Reported Past Surgical History: Bariatric Surgery Past Psychological History: No Psychological Hx Reported Smoking Status: Never smoker Past Alcohol Use History: Rare Past Drug Use History: None Reported Medications and Allergies Home Medications Medication Instructions Recorded Confirmed Type Ibuprofen [Motrin] 600 mg PO Q8HR PRN #30 tab 05/12/19 11/07/21 Rx Allergies Allergy/AdvReac Type Severity Reaction Status Date / Time Penicillins Allergy Rash/Hives Verified 11/07/21 19:41 Physical Exam Vitals: Vital Signs Temp Pulse Resp BP Pulse Ox 11/08/21 10:38 101 H 18 151/109 100 11/08/21 09:25 87 18 98 11/08/21 08:42 92 18 98 11/08/21 07:27 98.4 F 91 18 156/99 98 11/08/21 04:56 98 F 82 18 138/102 96 11/08/21 01:03 91 16 128/107 100 11/07/21 18:48 97.9 F 109 H 20 149/96 94 L Intake and Output 11/07/21 11/08/21 11/08/21 22:59 06:59 14:59 Intake Total 145.283 93.369 Balance 145.283 93.369 Intake: Intake, IV Titration 145.283 93.369 Amount Heparin Sod,Pork in 0.45% 145.283 93.369 NaCl 25,000 unit In 0.45 % NaCl 1 250ml.bag @ 17. 7917 UNITS/KG/HR 23 mls/ hr IV .[id number] [facility] Rx#: [id number] Other: Weight 129.274 kg GENERAL EXAM: Alert, very pleasant 51-year-old male patient, on room air, comfortable in no apparent distress. HEAD: Normocephalic. EYES: Normal reaction of pupils, equal size. NOSE: Clear with pink turbinates. THROAT: No erythema or exudates. NECK: No masses, no JVD. CHEST: No chest wall deformity. LUNGS: Equal air entry with no crackles, wheeze, rhonchi or dullness. CVS: S1 and S2 normal with no audible murmur, regular rhythm. ABDOMEN: No hepatosplenomegaly, normal bowel sounds, no guarding or rigidity. SPINE: No scoliosis or deformity SKIN: No rashes CENTRAL NERVOUS SYSTEM: No focal deficits, tone is normal in all 4 extremities. EXTREMITIES: There is trace peripheral edema of the right lower extremity. No clubbing, no cyanosis. Peripheral pulses are intact. Results - Laboratory Findings CBC and BMP: 11/08/21 03:09 11/07/21 20:30 PT/INR, D-dimer PT 11.4 sec (9.0-12.0) 11/08/21 03:09 INR 1.1 (<1.2) 11/08/21 03:09 D-Dimer 10.95 mg/L FEU (<0.60) H 11/07/21 20:30 Abnormal lab findings: Abnormal Labs 11/07/21 11/07/21 11/07/21 20:30 20:30 20:30 Plt Count 148 L APTT D-Dimer 10.95 H BUN 25 H Glucose 117 H Troponin I TSH 4.790 H 11/07/21 11/08/21 20:30 03:09 Plt Count APTT 93.9 H D-Dimer BUN Glucose Troponin I 0.614 H* TSH - Diagnostic Findings CT scan - chest: image reviewed Assessment and Plan Assessment: 1 Near syncope secondary to acute bilateral pulmonary emboli with saddle emboli and moderate clot burden. Echocardiogram reveals severely enlarged right ventricle with moderately impaired right ventricular systolic function. Flattening of the right ventricular septal wall consistent with right ventricular volume and pressure overload. Initiated on a heparin drip and plan is for EKOS procedure today 2 Acute right lower extremity DVT 3 Family history of PE/DVT in his father, all provoked by surgery but maintained on lifelong anticoagulation now 4 History of COVID-19 infections 3 most recently in July 2021, since fully vaccinated 5 Osteoarthritis with previous left knee arthroplasty 3, pending right knee replacement 6 History of morbid obesity with previous bariatric surgery/sleeve. Initially 415 pounds 7 years ago and has been maintained at 165 pounds 7 History of kidney stones Plan: The patient was seen and evaluated CT angiogram, echocardiogram, venous Doppler, labs reviewed Currently stable from the pulmonary standpoint and on room air Continue on heparin drip for now Plan is for EKOS procedure today We will follow in the intensive care unit post procedure Most likely will require lifelong anticoagulation We will continue to follow and make further recommendations based on his clini ashley status I, the cosigning physician, performed a history & physical examination of the patient. Lungs sounds are clear. Maintaining good O2 saturations in the 90s on room air. I discussed the assessment and plan of care with my nurse practitioner, Celeste Roman. I attest to the above consultation as dictated by her. I have personally seen and examined the patient, performed the documentation and the assessment and plan as written. Number of minutes spent on the visit: 20. <Mary Hurd - Last Filed: 11/08/21 14:04> Physical Exam Vitals: Vital Signs Temp Pulse Resp BP Pulse Ox 11/08/21 13:37 85 18 128/98 98 11/08/21 10:38 101 H 18 151/109 100 11/08/21 09:25 87 18 98 11/08/21 08:42 92 18 98 11/08/21 07:27 98.4 F 91 18 156/99 98 11/08/21 04:56 98 F 82 18 138/102 96 11/08/21 01:03 91 16 128/107 100 11/07/21 18:48 97.9 F 109 H 20 149/96 94 L Intake and Output 11/07/21 11/08/21 11/08/21 22:59 06:59 14:59 Intake Total 145.283 149.773 Balance 145.283 149.773 Intake: Intake, IV Titration 145.283 149.773 Amount Heparin Sod,Pork in 0.45% 145.283 149.773 NaCl 25,000 unit In 0.45 % NaCl 1 250ml.bag @ 17. 7917 UNITS/KG/HR 23 mls/ hr IV .[id number] [facility] Rx#: [id number] Other: Weight 129.274 kg Results - Laboratory Findings CBC and BMP: 11/08/21 11:53 11/08/21 11:53 PT/INR, D-dimer PT 10.7 sec (9.0-12.0) 11/08/21 11:53 INR 1.0 (<1.2) 11/08/21 11:53 D-Dimer 10.95 mg/L FEU (<0.60) H 11/07/21 20:30 Abnormal lab findings: Abnormal Labs 11/07/21 11/07/21 11/07/21 20:30 20:30 20:30 Plt Count 148 L APTT D-Dimer 10.95 H BUN 25 H Glucose 117 H Troponin I TSH 4.790 H 11/07/21 11/08/21 11/08/21 20:30 03:09 11:53 Plt Count APTT 93.9 H 36.8 H D-Dimer BUN Glucose Troponin I 0.614 H* TSH
--- NOTE | 2021-11-08 12:08 | P.GSCN ---
History of Present Illness Consult date: 11/08/21 Reason for Consult: Bilateral P pulmonary emboli Requesting physician: Lacy Jasso History of present illness: This 51-year-old male who presented to the emergency department with complaints of palpitations and lightheadedness. The patient states that he felt like he was going to pass out it occurred again later in the day so he came to the emergency room for further evaluation. He denies any previous cardiac history. He states that he is supposed to undergo knee surgery and had noticed some swelling in his right lower extremity about a week ago and saw his orthopedic surgeon. He was noted on admission to have an elevated d-dimer. A CTA of the chest was performed showing acute bilateral pulmonary embolism with saddle emboli and moderate clot burden. Patient underwent lower extremity venous Doppl er ultrasound showing positive DVT in the right lower extremity. Patient also had elevated troponins. Skin her surgery was consulted for evaluation of PE and possible EKOS, however cardiology was also consulted and plan to take the patient this afternoon for EKOS procedure. He currently denies any significant shortness of breath or chest pain. His oxygen level has been 98-100% on room air. Echocardiogram shows a severely enlarged right ventricle. Patient denies any recent traveling, surgery, or sedentary lifestyle. States he does have a family history of clotting disorder. Review of Systems A 14 point review of systems was completed and all pertinent positives and negatives as stated in the HPI. Past Medical History Past Medical History: No Reported History Additional Past Medical History / Comment(s): kidney stones History of Any Multi-Drug Resistant Organisms: None Reported Past Surgical History: Bariatric Surgery Past Psychological History: No Psychological Hx Reported Smoking Status: Never smoker Past Alcohol Use History: Rare Past Drug Use History: None Reported Medications and Allergies Home Medications Medication Instructions Recorded Confirmed Type Ibuprofen [Motrin] 600 mg PO Q8HR PRN #30 tab 05/12/19 11/07/21 Rx Allergies Allergy/AdvReac Type Severity Reaction Status Date / Time Penicillins Allergy Rash/Hives Verified 11/07/21 19:41 Surgical - Exam Vital Signs Temp Pulse Resp BP Pulse Ox 97.9 F 109 H 20 149/96 94 L 11/07/21 18:48 11/07/21 18:48 11/07/21 18:48 11/07/21 18:48 11/07/21 18:48 General appearance: The patient is alert, oriented, appears in no acute d istress. HET: Head is normocephalic and atraumatic. Pupils are equal and reactive. Neck: Supple without lymphadenopathy. Trachea midline. No audible carotid bruit. Heart: S1 S2. Regular rate and rhythm. Lungs: Clear to auscultation bilaterally. Abdomen: Soft, nontender, nondistended. Extremities: Right lower extremity with minimal edema. Neurological: No focal deficits. Strength and sensation are grossly intact. Results - Labs 11/08/21 03:09 11/07/21 20:30 Abnormal Lab Results - Last 24 Hours (Table) 11/07/21 11/07/21 11/07/21 Range/Units 20:30 20:30 20:30 Plt Count 148 L (150-450) k/uL APTT (22.0-30.0) sec D-Dimer 10.95 H (<0.60) mg/L FEU BUN 25 H (9-20) mg/dL Glucose 117 H (74-99) mg/dL Troponin I (0.000-0.034) ng/mL TSH 4.790 H (0.465-4.680) mIU/L 11/07/21 11/08/21 Range/Units 20:30 03:09 Plt Count (150-450) k/uL APTT 93.9 H (22.0-30.0) sec D-Dimer (<0.60) mg/L FEU BUN (9-20) mg/dL Glucose (74-99) mg/dL Troponin I 0.614 H* (0.000-0.034) ng/mL TSH (0.465-4.680) mIU/L Diabetes panel 11/07/21 Range/Units 20:30 Sodium 139 (137-145) mmol/L Potassium 4.0 (3.5-5.1) mmol/L Chloride 105 (98-107) mmol/L Carbon Dioxide 25 (22-30) mmol/L BUN 25 H (9-20) mg/dL Creatinine 1.02 (0.66-1.25) mg/dL Glucose 117 H (74-99) mg/dL Calcium 9.4 (8.4-10.2) mg/dL AST 20 (17-59) U/L ALT 14 (4-49) U/L Alkaline Phosphatase 71 (38-126) U/L Total Protein 7.5 (6.3-8.2) g/dL Albumin 4.3 (3.5-5.0) g/dL Thyroid panel 11/07/21 Range/Units 20:30 TSH 4.790 H (0.465-4.680) mIU/L Calcium panel 11/07/21 Range/Units 20:30 Calcium 9.4 (8.4-10.2) mg/dL Albumin 4.3 (3.5-5.0) g/dL Pituitary panel 11/07/21 Range/Units 20:30 Sodium 139 (137-145) mmol/L Potassium 4.0 (3.5-5.1) mmol/L Chloride 105 (98-107) mmol/L Carbon Dioxide 25 (22-30) mmol/L BUN 25 H (9-20) mg/dL Creatinine 1.02 (0.66-1.25) mg/dL Glucose 117 H (74-99) mg/dL Calcium 9.4 (8.4-10.2) mg/dL TSH 4.790 H (0.465-4.680) mIU/L Adrenal panel 11/07/21 Range/Units 20:30 Sodium 139 (137-145) mmol/L Potassium 4.0 (3.5-5.1) mmol/L Chloride 105 (98-107) mmol/L Carbon Dioxide 25 (22-30) mmol/L BUN 25 H (9-20) mg/dL Creatinine 1.02 (0.66-1.25) mg/dL Glucose 117 H (74-99) mg/dL Calcium 9.4 (8.4-10.2) mg/dL Total Bilirubin 0.9 (0.2-1.3) mg/dL AST 20 (17-59) U/L ALT 14 (4-49) U/L Alkaline Phosphatase 71 (38-126) U/L Total Protein 7.5 (6.3-8.2) g/dL Albumin 4.3 (3.5-5.0) g/dL - Imaging Comments: CTA reviewed Venous duplex reviewed Echocardiogram reviewed Assessment and Plan Assessment: 1. Bilateral pulmonary embolism with moderate clot burden, evidence of right heart strain 2. Family history of clotting disorder Plan: 1. Agree with cardiology to proceed with EKOS 2. Continue heparin 3. Recommend outpatient consultation with hematology for family history of clotting disorder Thank you for this consultation, we will continue to follow. The impression and plan of care has been dictated as directed. Dr. Barahona I performed a history and examination of this patient, discussed the same with the dictator. I agree with the dictator's note ,documented as a scribe. Any additional findings or plans will be noted.
[2021-11-08 12:26] LABS: Partial Thromboplastin Time 36.8 sec (22.0-30.0); Prothrombin Time 10.7 sec (9.0-12.0)
[2021-11-08 12:28] LABS: Basophils % (A) 1 %; Eosinophils # (A) 0.1 k/uL (0-0.7); Eosinophils % (A) 1 %; HCT 46.7 % (39.0-53.0); HGB 15.7 gm/dL (13.0-17.5); Lymphocytes # (A) 1.2 k/uL (1.0-4.8); Lymphocytes % (A) 16 %; MCHC 33.7 g/dL (31.0-37.0); MCV 91.9 fL (80.0-100.0); Mean Platelet Volume 7.8; Monocytes # (A) 0.4 k/uL (0-1.0); Monocytes % (A) 5 %; Neutrophils # (A) 5.6 k/uL (1.3-7.7); Neutrophils % (A) 76 %; Platelet Count 184 k/uL (150-450); RBC 5.08 m/uL (4.30-5.90); WBC 7.3 k/uL (3.8-10.6)
[2021-11-08 12:44] LABS: African American GFR (CKD) >90 (>60 ml/min/1.73 sqM); Anion Gap 7 mmol/L; Blood Urea Nitrogen 15 mg/dL (9-20); Calcium 9.5 mg/dL (8.4-10.2); Carbon Dioxide 25 mmol/L (22-30); Chloride 107 mmol/L (98-107); Glucose 99 mg/dL (74-99); Non-African American GFR(CKD) >90 (>60 ml/min/1.73 sqM); Potassium 4.1 mmol/L (3.5-5.1); Sodium 139 mmol/L (137-145)
[2021-11-08] MEDS ORDERED: HEPARIN SODIUM 1,000 UN/ML (10ML VL) IV PRN (13:32)
[2021-11-08] MEDS ORDERED: HEPARIN SOD,PORK IN 0.45% NACL 25,000 UNIT in 0.45% NACL 1 250ML.BAG IV SCH ×2 (16:00)
[2021-11-08] MEDS ORDERED: SODIUM CHLORIDE 0.9% 1,000 ML IV SCH ×4 (16:00)
[2021-11-08] MEDS ORDERED: SODIUM CHLORIDE 0.9% 500 ML 500 ML IV ONE ×2 (16:40→17:00)
[2021-11-08] MEDS ORDERED: SODIUM CHLORIDE 0.9% 1,000 ML IV ONE (16:40)
[2021-11-08] MEDS ORDERED: LIDOCAINE 1% INJ 10MG/ML (20 ML MDV) ONE (16:55)
[2021-11-08] MEDS ORDERED: MIDAZOLAM 2 MG/2 ML VIAL IV ONE (17:14)
[2021-11-08] MEDS ORDERED: LIDOCAINE 1% INJ 10MG/ML (20 ML MDV) SQ ONE (17:14)
[2021-11-08 19:13] LABS: Glucose,Whole Blood 83 mg/dL (75-99)
--- NOTE | 2021-11-08 20:01 | PCN ---
PROCEDURE NOTE DATE OF SERVICE: 11/08/2021. PROCEDURE: EKOS catheter placement and infusion of tPA, heparin and ultrasound catheter placement from right femoral venous approach. PERFORMED BY: Dr. Jennifer Michle. INDICATION: Acute pulmonary embolism with right ventricular strain. Submassive pulmonary embolism. Moderate conscious sedation time was 71 minutes. Patient was administered Versed. Oxygen saturation, hemodynamics and EKG were monitored closely. CLINICAL INFORMATION: Mr. Jose Luis Bennett is a 51-year-old gentleman, quite active, has some orthopedic issues. He came into the hospital with shortness of breath and felt dizzy, lightheaded, was found to have an acute pulmonary embolism with right ventricular enlargement. He was placed on a heparin drip. He improved. He remained hemodynamically stable. Because of submassive pulmonary embolism, saddle embolus involving both the pulmonary arteries, I advised an EKOS procedure with tPA infusion as well as ultrasound. Discussion regarding risks, benefits and options was conducted with the patient and his . They agreed and wished to proceed with the procedure. PROCEDURE NOTE: Under local anesthesia and strict aseptic precautions, a 6-Trinidadian introducer was placed in the right femoral vein. I had difficulty getting another access in the same right side. I therefore used the same sheath and advanced another guidewire through it, and over each of the guidewires separate 6-Trinidadian introducers were placed. There was some oozing. Pressure was applied. Under fluoroscopic guidance, using a Laclede-Deirdre catheter and a Victory 0.018 wire with the loop, I was able to place the Laclede-Deirdre catheter in the right pulmonary artery. Using the long 0.018 wire, I exchanged this catheter and advanced the EKOS catheter under fluoroscopic guidance. Subsequently through the EKOS catheter, the ultrasound catheter was advanced and positioned. The distal end of the catheter was in the right pulmonary artery and the proximal end was at the beginning of the right pulmonary artery. Ultrasound catheter was positioned, and subsequently through another 6-Trinidadian sheath I advanced and positioned the Laclede-Deirdre catheter in the left pulmonary artery with a Victory wire combination. I then exchanged the catheter over the Victory wire for an EKOS catheter and kept it in the left pulmonary artery. Through the EKOS catheter I advanced the ultrasound catheter and positioned it. Good positioning was obtained of both the catheters. I then sutured both the sheaths in. The catheters were connected to the coolant and the drug port was infusing tPA and intravenous heparin. Coolant port was also connected to the coolant. The ultrasound catheter was also placed in good position. Good hemostasis was secured and the sheaths were sutured in and patient will be sent to the ICU. The procedure was performed uneventfully without any complication. Details were discussed with the patient as well as family members, including his and parents. PATRICIA / JAIMEE: [id number] /
[2021-11-08 20:55] LABS: Basophils # (A) 0.1 k/uL (0-0.2); Basophils % (A) 1 %; Eosinophils # (A) 0.1 k/uL (0-0.7); Eosinophils % (A) 1 %; HCT 46.3 % (39.0-53.0); HGB 15.2 gm/dL (13.0-17.5); Lymphocytes # (A) 1.3 k/uL (1.0-4.8); Lymphocytes % (A) 15 %; MCH 30.2 pg (25.0-35.0); MCHC 32.9 g/dL (31.0-37.0); MCV 91.7 fL (80.0-100.0); Mean Platelet Volume 7.9; Monocytes # (A) 0.5 k/uL (0-1.0); Monocytes % (A) 5 %; Neutrophils # (A) 6.4 k/uL (1.3-7.7); Neutrophils % (A) 76 %; Platelet Count 159 k/uL (150-450); RBC 5.05 m/uL (4.30-5.90); RDW 13.5 % (11.5-15.5); WBC 8.3 k/uL (3.8-10.6)
[2021-11-09] MEDS: HEPARIN SOD,PORK IN 0.45% NACL 25,000 UNIT in 0.45% NACL 1 250ML.BAG IV SCH ×2 (04:57→08:05)
[2021-11-09] MEDS ORDERED: HYDROmorphone 1 MG/ML 1 ML SYRINGE IVP STA (06:46)
--- NOTE | 2021-11-09 08:57 | IR ---
EXAMINATION TYPE: IR embolization any method DATE OF EXAM: 11/08/2021 COMPARISON: NONE HISTORY: Fluoroscopy time. Fluoroscopy was provided to the referring clinician.
--- NOTE | 2021-11-09 09:01 | PN ---
PROGRESS NOTE Mr. Bennett underwent EKOS procedure yesterday with tPA infusion in both his pulmonary arteries and also had an ultrasound on both sides. He is doing well, hemodynamically stable. No chest pain or shortness of breath. I will initiate him on Eliquis 10 mg b.i.d. from this afternoon and we will pull his sheaths today and hopefully move him to telemetry later this afternoon. Vitals are stable. No JVD. S1, S2 heard normally. Lungs reveal decent air entry. Abdomen is soft. Right groin has a small area of ecchymosis. Sheaths are still in place. Lower extremities reveal palpable pulses. No edema. Central nervous system is normal. IMPRESSION: 1. Status post acute pulmonary embolisms, saddle thrombus, status post EKOS procedure. 2. History of obesity and previous bariatric surgery. RECOMMENDATIONS: I am recommending that he should have a hematology evaluation. A consult has already been placed. We will pull the sheaths today and move him to the telemetry unit and initiate him on Eliquis 10 mg b.i.d. for one week and then 5 mg b.i.d. after that. I discussed my thoughts in detail with the patient. MMODL / IJN: [id number] /
--- NOTE | 2021-11-09 09:03 | P.PN ---
Subjective Progress Note Date: 11/09/21 Principal diagnosis: Bilateral pulmonary embolism Patient seen and examined as a follow-up. Yesterday he underwent EKOS procedure with cardiology. He is without any acute changes. Vital signs have been stable. He denies any shortness of breath or chest pain. Catheters were removed this morning. Hematology has been consulted by cardiology. Objective - Vital Signs Vital signs: Vital Signs Temp 97.8 F 11/09/21 04:00 Pulse 74 11/09/21 07:30 Resp 14 11/09/21 07:30 BP 130/90 11/09/21 07:30 Pulse Ox 94 L 11/09/21 08:16 Intake & Output 11/08/21 11/09/21 11/09/21 18:59 06:59 18:59 Intake Total 162.295 9647 30 Output Total 530 0 Balance 719.773 820 30 Weight 134 kg Intake: IV 570 990 30 Alteplase 10 mg In Sodium 180 Chloride 0.9% 90 ml @ 1 MG/HR 10 mls/hr IV .Q10H [facility] Rx#:[id number] Sodium Chloride 0.9% 1, 770 20 000 ml @ 35 mls/hr IV . Q24H [facility] Rx#:[id number] Sodium Chloride 0.9% 1, 40 10 000 ml @ Per Protocol IV .Q0M [facility] Rx#:[id number] Intake, IV Titration 149.773 Amount Heparin Sod,Pork in 0.45% 149.773 NaCl 25,000 unit In 0.45 % NaCl 1 250ml.bag @ 17. 7917 UNITS/KG/HR 23 mls/ hr IV .[id number] [facility] Rx#: [id number] Oral 360 Output: Urine 530 0 Other: Voiding Method Urinal - Exam General appearance: The patient is alert, oriented, in no acute distress. HET: Head is normocephalic and atraumatic. Neck: Supple without lymphadenopathy. Trachea midline. Heart: S1 S2. Regular rate and rhythm. Lungs: No crackles or wheezes are heard. Abdomen: Soft, nontender, nondistended. Extremities: Normal skin color and turgor. No cyanosis, rash, ulceration, clu bbing, or edema. Radial and pedal pulses are 2/4 bilaterally. Neurological: No focal deficits. Alert and oriented 3. - Labs CBC & Chem 7: 02/22/22 20:36 11/08/21 11:53 Labs: Abnormal Lab Results - Last 24 Hours (Table) 11/08/21 Range/Units 11:53 APTT 36.8 H (22.0-30.0) sec Assessment and Plan Assessment: 1. Bilateral pulmonary embolism with moderate clot burden, evidence of right heart strain 2. Family history of clotting disorder Plan: 1. Patient is status post EKOS 2. Oral anticoagulation per your choice 3. No follow-up needed with vascular surgery, patient is clear by vascular surgery for discharge The impression and plan of care has been dictated as directed. Dr. Somers I performed a history and examination of this patient, discussed the same with the dictator. I agree with the dictator's note ,documented as a scribe. Any additional findings or plans will be noted.
[2021-11-09] MEDS: APIXABAN 5 MG TAB PO SCH ×2 (12:07→20:42)
--- NOTE | 2021-11-09 13:09 | P.PN ---
Subjective Progress Note Date: 11/09/21 Principal diagnosis: Acute bilateral pulmonary embolism This is a very pleasant 51-year-old male patient who follows with Dr. Bran as his primary care provider. He has a history of previous bariatric sleeve secondary to morbid obesity and had weight 415 pounds. 7 years later he is maintaining a weight of 165 pounds. He has a history of kidney stones. He has a history of CoVID infection 3 most recently in July 2021 minor symptoms and no hospitalizations. He has since been fully vaccinated by [place] [employer]. He also has osteoarthritis with previous arthroplasty 3 in his left knee and was planning to have a right knee replacement soon. About 3 weeks ago he was having some more discomfort in his right knee that was felt to be secondary to the osteoarthritis. Yesterday however he developed pain going up into his right groin as well. He was having issues with dizziness and lightheadedness and shortness of breath. He presented here to the emergency room for the same. CT angiogram did confirm an acute bilateral PE with saddle emboli and moderate clot burden. Otherwise no significant airspace process. Dopplers of the lower extremity were positive for DVT within the popliteal, PT wheeze, and peroneal veins. He was initiated on a heparin drip. He is seen today in consultation in the emergency department. He is currently sitting up in the stretcher. Awake and alert in no acute distress. He is feeling a bit better today compared to yesterday. Breathing a bit easier. A little less discomfort. He is maintaining good O2 saturations in the 90s on room air. White count 8.4. Hemoglobin 15.3. D-dimer 10.95. Sodium 139. Potassium 4.0. Creatinine 1.02. Glucose 117. Troponin 0.614. ProBNP 88. TSH 4.79. Free T4 1 0.22. Dent virus by PCR not detected. Echocardiogram performed this morning did reveal severely enlarged right ventricle with moderately impaired right ventricular systolic function with ventral septal wall flattening consistent with right ventricular volume pressure overload. The plan is for EKOS procedure today. Patient was reevaluated today on 11/09/2021, I saw this patient yesterday for acute pulmonary embolism, he underwent ekos catheter placement and infusion of TPA, this was done from the right femoral approach, patient tolerated the procedure well, and he feels great today. Relatively asymptomatic, patient was placed on oral anticoagulation therapy and he was advised to stay on it lifetime. Presently asymptomatic, no cough no wheezing no shortness of breath no chest pain. Fibrinogen level today is 300. Objective - Vital Signs Vital signs: Vital Signs Temp 97.8 F 11/09/21 12:00 Pulse 104 H 11/09/21 12:00 Resp 14 11/09/21 12:00 BP 131/92 11/09/21 12:00 Pulse Ox 96 11/09/21 12:00 Intake & Output 11/08/21 11/09/21 11/09/21 18:59 06:59 18:59 Intake Total 569.164 7416 80 Output Total 530 300 Balance 719.773 820 -220 Weight 134 kg Intake: IV 570 990 80 Alteplase 10 mg In Sodium 180 Chloride 0.9% 90 ml @ 1 MG/HR 10 mls/hr IV .Q10H [facility] Rx#:[id number] Sodium Chloride 0.9% 1, 770 60 000 ml @ 35 mls/hr IV . Q24H [facility] Rx#:[id number] Sodium Chloride 0.9% 1, 40 20 000 ml @ Per Protocol IV .Q0M [facility] Rx#:[id number] Intake, IV Titration 149.773 Amount Heparin Sod,Pork in 0.45% 149.773 NaCl 25,000 unit In 0.45 % NaCl 1 250ml.bag @ 17. 7917 UNITS/KG/HR 23 mls/ hr IV .[id number] [facility] Rx#: [id number] Oral 360 Output: Urine 530 300 Other: Voiding Method Urinal Urinal - Exam Physical Exam revealed 51-year-old white male in no distress, on room air. Head: Atraumatic, normocephalic. HEENT:[Neck is supple.] [No neck masses.] [No thyromegaly.] [No JVD.] Chest: [Clear throughout, no crackles, no rhonchi, no wheezes.] Cardiac Exam: [Normal S1 and S2, no S3 gallop, no murmur.] Abdomen: [Soft, nontender, no megaly, no rebound, no guarding, normal bowel sounds.] Extremities: [No clubbing, no edema, no cyanosis.] Neurological Exam: [No focal neurologic deficit.] Psychiatric: Normal mood affect and normal mental status examination. Skin: No rashes. - Labs CBC & Chem 7: 11/08/21 20:36 11/08/21 11:53 Assessment and Plan Assessment: Impression: Acute bilateral pulmonary embolism with moderate clot burden and right ventricular strain, status post EKOD procedure. Acute right lower extremity DVT, unprovoked Strong family history of pulmonary embolism and DVT History of COVID-19 infection over 3 months ago. Patient has been fully vaccinated since then. History of degenerative joint disease. History of bariatric surgery/sleeve 4 morbid obesity. History of nephrolithiasis. Recommendation: Continue oral anticoagulation therapy. Transfer patient out of the ICU to regular medical floor. Consider discharge planning either later today or tomorrow. Will follow on when necessary basis. Time with Patient: Less than 30
--- NOTE | 2021-11-09 19:36 | P.PN ---
Subjective This is a pleasant 51 his old male with no significant past medical history. He is patient of Dr. Bran pt states that he came because of dyspnea of one-day duration with no coughing, he had a little of chest pain last night which she describes more as a fluttering but it improved after he was started on heparin. He denies any abdominal pain or nausea vomiting or diarrhea. No urinary complaints. No headache or weakness or numbness. No fever. He has been complaining of from right leg pain and he saw his surgeon about a week ago for his right knee pain. Right leg isn't swollen and warm. He denies smoking or illicit drugs, occasional alcohol Vitas looks stable and he is saturating 94% on room air. Slightly tachycardic and 109 and tachypneic at 20 Labs including CBC, INR, BMP and liver enzymes are unremarkable. Per is elevated at 10.9 Creatinine normal 1.0 Troponin elevated 0.6. TSH is slightly high at 4.7 with free T4 is pending. pompa virus not detected CTA of the chest: Acute bilateral pulmonary embolism with saddle emboli and moderate clot burden In the emergency room patient was started on heparin drip at vascular surgery team were consulted recommended to admit and continue with conservative management for now per ID team 11/09/2021 Patient is a day most of the IC for close monitoring is status post EKOS WHICH is removed by [employer] today. Today he is fully awake and oriented, completely comfortable, no respiratory distress, completely asymptomatic. He was taken of this heparin drip and switched to Eliquis 10 mg twice daily for 7 days to be continued after that at 5 mg twice a day. Patient's was started to be discharged today however as per discussion with [employer] in regard to monitor him for another 24 hours, patient informed and agrees. Pulmonary service and vascular service signed off the case and give him for discharge. Possible discharge in 24 hours if he remains stable and improving Objective - Vital Signs Vital signs: Vital Signs Temp 98.0 F 11/09/21 08:00 Pulse 77 11/09/21 10:00 Resp 14 11/09/21 10:00 BP 131/92 11/09/21 10:00 Pulse Ox 97 11/09/21 10:00 Intake & Output 11/08/21 11/09/21 11/09/21 18:59 06:59 18:59 Intake Total 601.146 0341 80 Output Total 530 300 Balance 719.773 820 -220 Weight 134 kg Intake: IV 570 990 80 Alteplase 10 mg In Sodium 180 Chloride 0.9% 90 ml @ 1 MG/HR 10 mls/hr IV .Q10H [facility] Rx#:[id number] Sodium Chloride 0.9% 1, 770 60 000 ml @ 35 mls/hr IV . Q24H [facility] Rx#:[id number] Sodium Chloride 0.9% 1, 40 20 000 ml @ Per Protocol IV .Q0M [facility] Rx#:[id number] Intake, IV Titration 149.773 Amount Heparin Sod,Pork in 0.45% 149.773 NaCl 25,000 unit In 0.45 % NaCl 1 250ml.bag @ 17. 7917 UNITS/KG/HR 23 mls/ hr IV .[id number] [facility] Rx#: [id number] Oral 360 Output: Urine 530 300 Other: Voiding Method Urinal Urinal - Exam GENERAL: The patient is alert and oriented x3, not in any acute distress. Well developed, well nourished. HEENT: Pupils are round and equally reacting to light. EOMI. No scleral icterus. No conjunctival pallor. Normocephalic, atraumatic. No pharyngeal erythema. No thyromegaly. CARDIOVASCULAR: S1 and S2 present. No murmurs, rubs, or gallops. PULMONARY: Chest is clear to auscultation, no wheezing or crackles. ABDOMEN: Soft, nontender, nondistended, normoactive bowel sounds. No palpable organomegaly. MUSCULOSKELETAL: No joint swelling or deformity. EXTREMITIES: No cyanosis, clubbing, or pedal edema. NEUROLOGICAL: Gross neurological examination did not reveal any focal deficits. SKIN: No rashes. no petechiae. - Labs CBC & Chem 7: 11/08/21 20:36 11/08/21 11:53 Labs: Abnormal Lab Results - Last 24 Hours (Table) 11/08/21 Range/Units 11:53 APTT 36.8 H (22.0-30.0) sec Assessment and Plan Assessment: Acute bilateral pulmonary embolism elevated troponin, most likely secondary to PE Right leg swelling and warmth, secondary to right leg DVT Elevated d-dimer, secondary to above, Plan: This is a pleasant 51 years old male who presents with bilateral PE Continue with Eliquis 10 mg twice a day Vascular and pulmonary service site of the case Cardiology on the case and it went to monitor for another 24 hours patient is counseled to follow up with social worker clinical Dr. Jackson as an outpatient and he Labs and medication were reviewed.. Continue same treatment. Continue with symptomatic treatment. Resume home medication. Monitor lytes and vitals. DVT and GI prophylaxis. Further recommendations as per clinical course of the patient DVT prophylaxis: Eliquis GI Prophylaxis: Pepcid
[2021-11-10 00:31] VITALS: RESP 14
[2021-11-10] MEDS: APIXABAN 5 MG TAB PO SCH (07:55)
[2021-11-10 07:59] LABS: African American GFR (CKD) >90 (>60 ml/min/1.73 sqM); Anion Gap 6 mmol/L; Basophils # (A) 0.1 k/uL (0-0.2); Basophils % (A) 1 %; Blood Urea Nitrogen 16 mg/dL (9-20); Calcium 9.4 mg/dL (8.4-10.2); Carbon Dioxide 27 mmol/L (22-30); Chloride 104 mmol/L (98-107); Eosinophils # (A) 0.1 k/uL (0-0.7); Eosinophils % (A) 2 %; Glucose 89 mg/dL (74-99); HCT 45.9 % (39.0-53.0); HGB 15.3 gm/dL (13.0-17.5); Lymphocytes # (A) 1.2 k/uL (1.0-4.8); Lymphocytes % (A) 17 %; MCH 30.7 pg (25.0-35.0); MCHC 33.4 g/dL (31.0-37.0); MCV 91.9 fL (80.0-100.0); Mean Platelet Volume 7.7; Monocytes # (A) 0.5 k/uL (0-1.0); Monocytes % (A) 6 %; Neutrophils # (A) 5.2 k/uL (1.3-7.7); Neutrophils % (A) 73 %; Non-African American GFR(CKD) >90 (>60 ml/min/1.73 sqM); Platelet Count 159 k/uL (150-450); Potassium 4.4 mmol/L (3.5-5.1); RDW 13.5 % (11.5-15.5); Sodium 137 mmol/L (137-145); WBC 7.2 k/uL (3.8-10.6)
[2021-11-10 08:14] VITALS: BP 112/87; PULSE 71; TEMP 98
--- NOTE | 2021-11-10 09:00 | P.PN ---
Subjective Progress Note Date: 11/10/21 Principal diagnosis: Bilateral pulmonary embolism Patient was seen and examined sitting up in the ICU. He is status post EKOS. He was kept overnight for further observation. He states he is doing well, no shortness of breath or chest pain. No pain in the right lower extremity. He's been tolerating a diet and has been up and ambulating. Objective - Vital Signs Vital signs: Vital Signs Temp 98 F 11/10/21 08:00 Pulse 71 11/10/21 08:00 Resp 14 11/10/21 08:00 BP 112/87 11/10/21 08:00 Pulse Ox 98 11/10/21 07:40 Intake & Output 11/09/21 11/10/21 11/10/21 18:59 06:59 18:59 Intake Total 80 500 Output Total 300 450 Balance -220 -450 500 Weight 127 kg Intake: IV 80 Sodium Chloride 0.9% 1, 60 000 ml @ 35 mls/hr IV . Q24H [facility] Rx#:[id number] Sodium Chloride 0.9% 1, 20 000 ml @ Per Protocol IV .Q0M [facility] Rx#:[id number] Oral 500 Output: Urine 300 450 Other: Voiding Method Urinal Urinal Urinal # Voids 3 # Bowel Movements 2 - Exam General appearance: The patient is alert, oriented, in no acute distress. HET: Head is normocephalic and atraumatic. Neck: Supple without lymphadenopathy. Trachea midline. Heart: S1 S2. Regular rate and rhythm. Lungs: No crackles or wheezes are heard. Abdomen: Soft, nontender, nondistended. Extremities: Normal skin color and turgor. No cyanosis, rash, ulceration, clubbing, or edema. Radial and pedal pulses are 2/4 bilaterally. Neurological: No focal deficits. Alert and oriented 3. - Labs CBC & Chem 7: 11/10/21 07:21 11/10/21 07:21 Assessment and Plan Assessment: 1. Bilateral pulmonary embolism with moderate clot burden, evidence of right heart strain data is post EKOS 2. Family history of clotting disorder Plan: 1. Patient is status post EKOS 2. Continue oral anticoagulation 3. Agree with outpatient hematology consult 4. No follow-up needed with vascular surgery, patient is clear by vascular surgery for discharge The impression and plan of care has been dictated as directed. Dr. Giliberto I performed a history and examination of this patient, discussed the same with the dictator. I agree with the dictator's note ,documented as a scribe. Any a dditional findings or plans will be noted.
--- NOTE | 2021-11-10 10:03 | PN ---
PROGRESS NOTE Mr. Benntet presented with acute pulmonary embolism, underwent EKOS procedure. He is doing remarkably well. His labs are pending. He is in sinus rhythm, asymptomatic, room-air oxygen saturation 98%. Heart rate is 78, blood pressure is 130/70, S1-S2 heard normally. No JVD. Lungs are clear. Abdomen lower extremity exam unchanged. Plan is to increase activity and discharge him today. His right groin is clean and dry with a good pulse and no significant areas of ecchymosis. He will be discharged today and I will see him in a week and he will follow with his PCP. He was started on Eliquis 10 mg b.i.d. yesterday and he will be on this for a week. After that, he will go to 5 mg b.i.d. These instructions were given to the patient. PATRICIA / JAIMEE: [id number] /
--- NOTE | 2021-11-10 22:49 | P.DS ---
Providers Date of admission: 11/08/21 13:17 Attending physician: Venkata Swartz MD Consults: 11/07/21 22:10 Consult Physician Stat Consulting Provider: Jose Luis Barahona Consult Reason/Comments: PE Do you want consulting provider notified?: Already Contacted 11/07/21 22:27 Consult Physician Urgent Consulting Provider: [facility] Consult Reason/Comments: pulmonary embolism, elevated trop Do you want consulting provider notified?: Yes, Notify in am 11/07/21 23:38 Consult Physician Routine Consulting Provider: Mary Hurd Consult Reason/Comments: pe Do you want consulting provider notified?: Yes, Notify in am Primary care physician: Lee Bran MD Hospital Course: Diagnoses: Acute bilateral pulmonary embolism elevated troponin, most likely secondary to PE Right leg swelling and warmth, secondary to right leg DVT Right ventricular heart strain, asymptomatic. Hospital course: This is a pleasant 51 his old male with no significant past medical history. He is patient of Dr. Bran pt states that he came because of dyspnea of one-day duration with no coughing, CTA of the chest: Acute bilateral pulmonary embolism with saddle emboli and moderate clot burden. Vascular surgery and pulmonary services were consulted, no need for any vascular intervention and patient monitored in the ICU for 24-48 hours and he remained stable. Echocardiogram showed ejection fraction of 55-60% with right ventricular volume and pressure overload and transferred ventricular septal wall is a flattened in diastole and systole. Patient as such is been evaluated by conference services manager he underwent EKOS but this is removed. On the day of discharge patient remains completely asymptomatic, no chest pain no dyspnea no weakness, walking and eating normally at his baseline. No change in urine or bowel habits. No fever. Patient was cleared for discharge by all consultants with a conference services manager, camera engineer and vascular surgery Patient feels his rate to go HIS yesterday and definitely today as well. Patient instructed in details about the importance of interest is therapy and risk and benefits are explained. Patient will be discharged on total 7 days of Eliquis 10 mg twice a day and thereafter continue with 5 mg twice daily, patient informed and he agrees, I checked his co-pay with the pharmacy is about $60 and agree, I inspected bedside nurse to provide patient with a one-month free copoun or eliquis Problems and management plan were discussed with the patient and he verbalized understanding and acceptance Patient was found stable and can be discharged home however he needs follow-up as an outpatient. Patient was instructed to follow up with PCP Dr. Bran within one week and patient agrees Patient instructed to follow up with conference services manager Dr. Michel and elevator mechanic apprentice Dr. Jackson in 1 week after discharge and he agrees to call and make his own appointments. Physical exam Gen: patient is a AAOx3, no distress CVS: S1-S2, RRR, no murmur Lungs: B/L CTA, no wheezing Abdomen: soft, no distention, no tenderness, positive bowel sounds Extremity: no leg edema or induration Time spent more than 35 minutes Patient Condition at Discharge: Good Plan - Discharge Summary New Discharge Prescriptions: New Apixaban [Eliquis] 5 mg PO DIRECTED #60 tab Discontinued Ibuprofen [Motrin] 600 mg PO Q8HR PRN #30 tab PRN Reason: Pain Discharge Medication List Apixaban [Eliquis] 5 mg PO DIRECTED #60 tab 11/09/21 [Rx] Follow up Appointment(s)/Referral(s): Yunior Jackson MD [STAFF PHYSICIAN] - 1 Week (Blood disease doctor, elevator mechanic apprentice) Filiberto Michel MD [STAFF PHYSICIAN] - 1 Week Lee Bran MD [Primary Care Provider] - 11/14/21 10:45 am Patient Instructions/Handouts: Pulmonary Embolism (DC), Deep Vein Thrombosis (DC) Activity/Diet/Wound Care/Special Instructions: Heart healthy diet Activity is restricted until you see your doctor continue with the Eliquis 10 mg (2 pills) twice a day for 6 days then continue with 5 mg (1 pill) twice a day thereafter Discharge Disposition: HOME SELF-CARE
== END 2021-11-10 10:45 | disposition home or self-care (01) | DRG 988 ==
LOC: EC 18:36 → 3SCARD 22:10 → OBSVTOIN 11-08 13:17 → 3SCARD 11-08 13:47 → 2SICU 11-08 14:42
PROVIDERS: ADMIT Internal Medicine; ATTEND Internal Medicine
PROC: 3E03317 Introduction of Other Thrombolytic into Peripheral Vein, Percutaneous Approach (ICD-10-PCS; 2021-11-08)
PROC: 06HM33Z Insertion of Infusion Device into Right Femoral Vein, Percutaneous Approach (ICD-10-PCS; 2021-11-08)
PROC: 02HQ33Z Insertion of Infusion Device into Right Pulmonary Artery, Percutaneous Approach (ICD-10-PCS; 2021-11-08)
PROC: B54BZZA Ultrasonography of Right Lower Extremity Veins, Guidance (ICD-10-PCS; 2021-11-08)
PROC: 02HR33Z Insertion of Infusion Device into Left Pulmonary Artery, Percutaneous Approach (ICD-10-PCS; 2021-11-08)
PROC: 06F Lower Veins, Fragmentation (ICD-10-PCS; principal; 2021-11-08 16:35)
DX: I26.92 Saddle embolus of pulmonary artery without acute cor pulmonale (principal); I82.431 Acute embolism and thrombosis of right popliteal vein; I51.7 Cardiomegaly; Z86.16 Personal history of COVID-19; R79.89 Other specified abnormal findings of blood chemistry; Z20.822 Contact with and (suspected) exposure to COVID-19; E66.01 Morbid (severe) obesity due to excess calories; M17.11 Unilateral primary osteoarthritis, right knee; Z68.31 Body mass index [BMI] 31.0-31.9, adult; M19.90 Unspecified osteoarthritis, unspecified site; Z79.01 Long term (current) use of anticoagulants; Z82.49 Family history of ischemic heart disease and other diseases of the circulatory system; Z83.2 Family history of diseases of the blood and blood-forming organs and certain disorders involving the immune mechanism; Z86.711 Personal history of pulmonary embolism; Z86.718 Personal history of other venous thrombosis and embolism; Z87.442 Personal history of urinary calculi; Z98.84 Bariatric surgery status; Z88.0 Allergy status to penicillin; Z96.652 Presence of left artificial knee joint
CPT/HCPCS: 36415; 37211; 71275; 80048; 80053; 83880; 84439; 84443; 84484; 85025; 85379; 85384; 85610; 85730; 87635; 93005; 93306; 93970; 96360; 99291

== ENCOUNTER 2021-12-02 09:39 | Emergency (ER) | payer BC ==
[2021-12-02 09:47] VITALS: TEMP 98.2
[2021-12-02] MEDS ORDERED: LORazepam 1 MG TAB PO STA (10:54)
--- NOTE | 2021-12-02 10:56 | ED ---
General Adult HPI - General Chief complaint: Shortness of Breath Stated complaint: SOB Time Seen by Provider: 12/02/21 09:45 Source: patient, RN notes reviewed, old records reviewed Mode of arrival: ambulatory Limitations: no limitations - History of Present Illness Initial comments: This is a 51-year-old male who presents emergency Department and states that he has had a history of some anxiety and he has a PE in the recent past and is on eliquis. Patient states now when he lays down he feels like his throat close off and can't get a deep breath. Patient states he was 30 seen once today but now is concerned that he might have pneumonia so is hoping to get a chest x-ray. Patient admits is ANXIETY. Patient denies any chest pain. Patient denies being short of breath as long disease not falling asleep. Patient denies any fever chills or cough per patient denies abdominal pain patient denies nausea vomiting diarrhea. - Related Data Home Medications Medication Instructions Recorded Confirmed Apixaban [Eliquis] 5 mg PO BID@0700,1900 12/02/21 12/02/21 Calcium Carbonate [Tums] 1,000 mg PO TID PRN 12/02/21 12/02/21 Allergies Allergy/AdvReac Type Severity Reaction Status Date / Time Penicillins Allergy Rash/Hives Verified 12/02/21 11:34 at waist line Review of Systems ROS Statement: Those systems with pertinent positive or pertinent negative responses have been documented in the HPI. ROS Other: All systems not noted in ROS Statement are negative. Past Medical History Past Medical History: Deep Vein Thrombosis (DVT), Pulmonary Embolus (PE) Additional Past Medical History / Comment(s): kidney stones History of Any Multi-Drug Resistant Organisms: None Reported Past Surgical History: Bariatric Surgery Past Psychological History: No Psychological Hx Reported Smoking Status: Never smoker Past Alcohol Use History: Rare Past Drug Use History: None Reported General Exam - General Exam Comments Initial Comments: GENERAL: Patient is well-developed and well-nourished. Patient is nontoxic and well- hydrated and is in no acute distress. ENT: Neck is soft and supple. No significant lymphadenopathy is noted. Oropharynx is clear. Moist mucous membranes. Neck has full range of motion without eliciting any pain. EYES: The sclera were anicteric and conjunctiva were pink and moist. Extraocular movements were intact and pupils were equal round and reactive to light. Eyelids were unremarkable. PULMONARY: Unlabored respirations. Good breath sounds bilaterally. No audible rales rhonchi or wheezing was noted. CARDIOVASCULAR: There is a regular rate and rhythm without any murmurs gallops or rubs. ABDOMEN: Soft and nontender with normal bowel sounds. SKIN: Skin is clear with no lesions or rashes and otherwise unremarkable. NEUROLOGIC: Patient is alert and oriented x3. Cranial nerves II through XII are grossly intact. Motor and sensory are also intact. Normal speech, volume and content. Symmetrical smile. MUSCULOSKELETAL: Normal extremities with adequate strength and full range of motion. No lower extremity swelling or edema. No calf tenderness. LYMPHATICS: No significant lymphadenopathy is noted PSYCHIATRIC: Patient is mildly anxious Limitations: no limitations Course Vital Signs 12/02/21 09:43 Temperature 98.2 F Pulse Rate 81 Respiratory 18 Rate Blood Pressure 128/91 O2 Sat by Pulse 98 Oximetry Medical Decision Making - Medical Decision Making Patient did not want another EKG because he already had one done earlier today. Chest x-ray shows no acute abnormality. Disposition Clinical Impression: Anxiety Disposition: HOME SELF-CARE Instructions (If sedation given, give patient instructions): Anxiety (ED) Is patient prescribed a controlled substance at d/c from ED?: No Referrals: Lee Bran MD [Primary Care Provider] - 1-2 days Time of Disposition: 11:43
--- NOTE | 2021-12-02 11:37 | XR ---
EXAMINATION TYPE: XR chest 2V DATE OF EXAM: 12/02/2021 COMPARISON: CT 11/07/2021 HISTORY: 51 year-old male shortness of breath, difficulty breathing, anxiety TECHNIQUE: PA and lateral views FINDINGS: Heart normal size. Aorta and pulmonary vasculature within normal limits. Mild interstitial prominence has a somewhat chronic appearance with seen with bronchitis or asthma. No consolidation or pleural e ffusion. IMPRESSION: Interstitial prominence has a somewhat chronic appearance but may be seen with bronchitis or asthma. No focal infiltrate.
[2021-12-02 12:24] VITALS: BP 131/98; PULSE 68; RESP 16
== END 2021-12-02 12:23 | disposition home or self-care (01) ==
LOC: EC 09:39
DX: F41.9 Anxiety disorder, unspecified (principal); Z79.01 Long term (current) use of anticoagulants; Z88.0 Allergy status to penicillin; Z86.718 Personal history of other venous thrombosis and embolism; Z86.711 Personal history of pulmonary embolism; Z87.442 Personal history of urinary calculi; Z98.84 Bariatric surgery status
CPT/HCPCS: 71046; 99284

== ENCOUNTER 2021-12-03 17:07 | Emergency (ER) | payer BC ==
[2021-12-03 17:41] VITALS: TEMP 98
[2021-12-03] MEDS ORDERED: SODIUM CHLORIDE 0.9% 1,000 ML IV STA (17:58)
[2021-12-03 18:04] VITALS: RESP 18
--- NOTE | 2021-12-03 18:04 | ED ---
General Adult HPI - General Chief complaint: Chest Pain Stated complaint: Increased heart rate, and VANCE Time Seen by Provider: 12/03/21 17:45 Source: patient Mode of arrival: ambulatory Limitations: no limitations - History of Present Illness Initial comments: Dictation was produced using [employer] dictation software. please excuse any grammatical, word or spelling errors. Chief Complaint: 51-year-old male presents emergency department for palpitations and dizziness History of Present Illness: 51-year-old male he was diagnosed with bilateral pulmonary emboli in September of this year. He's been on Levaquin since then. Over the last couple days he's been feeling dizzy and having palpitations. Patient denies any lower extremity symptoms at the moment. 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 States that his groin pain is gone. Denies any calf swelling or calf tenderness of either extremity. He is not short of breath but feels like he is having significant palpitations. He states his heart rate goes as high as 130s with minimal exertion when his heart rate is normally resting at 50. Denies any fever. No cough. No runny nose. He has no chest pain. He did see outpatient clinician ordered x-ray. They felt like his symptoms were from anxiety. The ROS documented in this emergency department record has been reviewed and confirmed by me. Those systems with pertinent positive or negative responses have been documented in the HPI. All other systems are other negative and/or noncontributory. PHYSICAL EXAM: General Impression: Alert and oriented x3, not in acute distress HEENT: Normocephalic atraumatic, extra-ocular movements intact, pupils equal and reactive to light bilaterally, mucous membranes moist. Cardiovascular: Heart regular rate and rhythm Chest: Able to complete full sentences, no retractions, no tachypnea Abdomen: abdomen soft, non-tender, non-distended, no organomegaly Musculoskeletal: Pulses present and equal in all extremities, no peripheral edema Motor: no focal deficits noted Neurological: CN II-XII grossly intact, no focal motor or sensory deficits noted Skin: Intact with no visualized rashes Psych: Normal affect and mood ED course: 51-year-old well-appearing male presents emergency department for palpitations and dizziness. He has history of bilateral PEs. As upon arrival shows her to 103, worse vital signs within acceptable limits. Patient adamant about getting a CT of his chest. He does not have any shortness of breath. Laboratory evaluation obtained. CBC, coag panel, metabolic panel is unremarkable. Brain natruretic peptide and troponin is negative. CT angios the chest shows no acute processes. Patient observed in the emergency department for approximately 2 hours and 45 minutes is reevaluated at bedside at 7:55 PM found to be in stable medical condition. Patient's vitals are stable. He is well-appearing. Patient will be discharged. EKG interpretation: Ventricular rate 80, sinus rhythm,. 154, care is 93, QTC 361. No MA prolongation, no QTC prolongation, no ST or T-wave changes noted. EKG compared to 12/02/2021 showing no changes. Overall, this EKG is unremarkable - Related Data Home Medications Medication Instructions Recorded Confirmed Apixaban [Eliquis] 5 mg PO BID@0700,1900 12/02/21 12/03/21 Calcium Carbonate [Tums] 1,000 mg PO TID PRN 12/02/21 12/03/21 Allergies Allergy/AdvReac Type Severity Reaction Status Date / Time Penicillins Allergy Rash/Hives Verified 12/03/21 18:57 at waist line Review of Systems ROS Statement: Those systems with pertinent positive or pertinent negative responses have been documented in the HPI. ROS Other: All systems not noted in ROS Statement are negative. Past Medical History Past Medical History: Deep Vein Thrombosis (DVT), Pulmonary Embolus (PE) Additional Past Medical History / Comment(s): kidney stones History of Any Multi-Drug Resistant Organisms: None Reported Past Surgical History: Bariatric Surgery Additional Past Surgical History / Comment(s): covid novembr 2020 Past Psychological History: No Psychological Hx Reported Smoking Status: Never smoker Past Alcohol Use History: Rare Past Drug Use History: None Reported General Exam Limitations: no limitations Course Vital Signs 12/03/21 12/03/21 12/03/21 17:38 18:00 18:03 Temperature 98 F Pulse Rate 103 H 79 Respiratory 20 20 18 Rate Blood Pressure 125/86 114/88 O2 Sat by Pulse 98 96 Oximetry Medical Decision Making - Lab Data Result diagrams: 12/03/21 18:00 12/03/21 18:00 Lab Results 12/03/21 12/03/21 12/03/21 Range/Units 18:00 18:00 18:00 WBC 8.8 (3.8-10.6) k/uL RBC 5.53 (4.30-5.90) m/uL Hgb 16.8 (13.0-17.5) gm/dL Hct 50.2 (39.0-53.0) % MCV 90.7 (80.0-100.0) fL MCH 30.4 (25.0-35.0) pg MCHC 33.5 (31.0-37.0) g/dL RDW 13.1 (11.5-15.5) % Plt Count 218 (150-450) k/uL MPV 8.5 Neutrophils % 71 % Lymphocytes % 19 % Monocytes % 6 % Eosinophils % 2 % Basophils % 1 % Neutrophils # 6.3 (1.3-7.7) k/uL Lymphocytes # 1.6 (1.0-4.8) k/uL Monocytes # 0.5 (0-1.0) k/uL Eosinophils # 0.2 (0-0.7) k/uL Basophils # 0.1 (0-0.2) k/uL PT 10.6 (9.0-12.0) sec INR 1.0 (<1.2) APTT 24.5 (22.0-30.0) sec Sodium 139 (137-145) mmol/L Potassium 3.9 (3.5-5.1) mmol/L Chloride 106 (98-107) mmol/L Carbon Dioxide 23 (22-30) mmol/L Anion Gap 10 mmol/L BUN 16 (9-20) mg/dL Creatinine 0.81 (0.66-1.25) mg/dL Est GFR (CKD-EPI)AfAm >90 (>60 ml/min/1.73 sqM) Est GFR (CKD-EPI)NonAf >90 (>60 ml/min/1.73 sqM) Glucose 112 H (74-99) mg/dL Calcium 9.8 (8.4-10.2) mg/dL Troponin I (0.000-0.034) ng/mL NT-Pro-B Natriuret Pep pg/mL 12/03/21 12/03/21 Range/Units 18:00 18:00 WBC (3.8-10.6) k/uL RBC (4.30-5.90) m/uL Hgb (13.0-17.5) gm/dL Hct (39.0-53.0) % MCV (80.0-100.0) fL MCH (25.0-35.0) pg MCHC (31.0-37.0) g/dL RDW (11.5-15.5) % Plt Count (150-450) k/uL MPV Neutrophils % % Lymphocytes % % Monocytes % % Eosinophils % % Basophils % % Neutrophils # (1.3-7.7) k/uL Lymphocytes # (1.0-4.8) k/uL Monocytes # (0-1.0) k/uL Eosinophils # (0-0.7) k/uL Basophils # (0-0.2) k/uL PT (9.0-12.0) sec INR (<1.2) APTT (22.0-30.0) sec Sodium (137-145) mmol/L Potassium (3.5-5.1) mmol/L Chloride (98-107) mmol/L Carbon Dioxide (22-30) mmol/L Anion Gap mmol/L BUN (9-20) mg/dL Creatinine (0.66-1.25) mg/dL Est GFR (CKD-EPI)AfAm (>60 ml/min/1.73 sqM) Est GFR (CKD-EPI)NonAf (>60 ml/min/1.73 sqM) Glucose (74-99) mg/dL Calcium (8.4-10.2) mg/dL Troponin I <0.012 (0.000-0.034) ng/mL NT-Pro-B Natriuret Pep 69 pg/mL Disposition Clinical Impression: Dizziness Disposition: HOME SELF-CARE Condition: Good Instructions (If sedation given, give patient instructions): Dizziness (ED) Is patient prescribed a controlled substance at d/c from ED?: No Referrals: Lee Bran MD [Primary Care Provider] - 1-2 days
[2021-12-03 18:15] LABS: Basophils # (A) 0.1 k/uL (0-0.2); Basophils % (A) 1 %; Eosinophils # (A) 0.2 k/uL (0-0.7); Eosinophils % (A) 2 %; HCT 50.2 % (39.0-53.0); HGB 16.8 gm/dL (13.0-17.5); Lymphocytes # (A) 1.6 k/uL (1.0-4.8); Lymphocytes % (A) 19 %; MCH 30.4 pg (25.0-35.0); MCHC 33.5 g/dL (31.0-37.0); MCV 90.7 fL (80.0-100.0); Mean Platelet Volume 8.5; Monocytes # (A) 0.5 k/uL (0-1.0); Monocytes % (A) 6 %; Neutrophils # (A) 6.3 k/uL (1.3-7.7); Neutrophils % (A) 71 %; Platelet Count 218 k/uL (150-450); RBC 5.53 m/uL (4.30-5.90); RDW 13.1 % (11.5-15.5); WBC 8.8 k/uL (3.8-10.6)
[2021-12-03 18:25] LABS: Partial Thromboplastin Time 24.5 sec (22.0-30.0); Prothrombin Time 10.6 sec (9.0-12.0)
[2021-12-03 18:30] LABS: African American GFR (CKD) >90 (>60 ml/min/1.73 sqM); Anion Gap 10 mmol/L; Blood Urea Nitrogen 16 mg/dL (9-20); Calcium 9.8 mg/dL (8.4-10.2); Carbon Dioxide 23 mmol/L (22-30); Chloride 106 mmol/L (98-107); Glucose 112 mg/dL (74-99); Non-African American GFR(CKD) >90 (>60 ml/min/1.73 sqM); Potassium 3.9 mmol/L (3.5-5.1); Sodium 139 mmol/L (137-145)
--- NOTE | 2021-12-03 18:53 | CT ---
EXAMINATION TYPE: CT angio chest CT DLP: 590.1 mGycm, Automated exposure control for dose reduction was used. DATE OF EXAM: 12/03/2021 6:27 PM COMPARISON: Chest radiograph from 11/04/2019 CLINICAL INDICATION:Male, 51 years old with history of positive D-dimer; Positive d-dimer. Recent PE. Chest pain. TECHNIQUE/CONTRAST: CTA scan of the thorax is performed with IV Contrast, patient injected with 100 mL of Isovue 370, pul monary embolism protocol. MIP images are created and reviewed. FINDINGS: Pulmonary Artery: There is no evidence for a filling defect within the pulmonary vasculature to sugge st acute pulmonary embolism. The pulmonary artery is of normal size. Lungs/Pleura: No evidence of focal consolidation, pleural effusion or pneumothorax. Right lower lobe calcified granuloma. Airway: Large airways are patent. Heart: Within normal limits for size.. Vasculature: No evidence of aortic aneurysm. Mediastinum: No gross evidence of adenopathy. Musculoskeletal: No acute osseous abnormalities, multilevel disc degeneration changes throughout the thoracic spine. Soft Tissues: Unremarkable. Lower neck: No significant findings. Upper Abdomen: Postsurgical changes in the lower esophagus and gastric lumen. IMPRESSION: No evidence of pulmonary embolism.
[2021-12-03] MEDS ORDERED: LORazepam 1 MG TAB PO STA (19:56)
[2021-12-03 20:02] VITALS: BP 128/87; PULSE 96
== END 2021-12-03 20:36 | disposition home or self-care (01) ==
LOC: EC 17:07
DX: R42 Dizziness and giddiness (principal); Z79.01 Long term (current) use of anticoagulants; Z88.0 Allergy status to penicillin; Z86.718 Personal history of other venous thrombosis and embolism; Z86.711 Personal history of pulmonary embolism; Z87.442 Personal history of urinary calculi; Z98.84 Bariatric surgery status
CPT/HCPCS: 99285; 96360; 36415; 93005; 83880; 80048; 84484; 85025; 85610; 85730; 71275; Q9967

== ENCOUNTER 2022-01-28 07:47 | Emergency (ER) | payer BC ==
[2022-01-28 08:00] VITALS: RESP 18; TEMP 98
--- NOTE | 2022-01-28 08:46 | ED ---
General Adult HPI - General Chief complaint: Extremity Problem,Nontraumatic Stated complaint: Leg Pain, Poss DVT Time Seen by Provider: 01/28/22 08:06 Source: patient Mode of arrival: ambulatory Limitations: no limitations - History of Present Illness Initial comments: 51-year-old male with a past medical history of DVT, PE provoked bite COVID-19 3 months ago presents to the emergency room for a chief complaint of left calf pain. Patient states he had a slight pulling feeling in his left calf yesterday. States he is concerned he could have a DVT and would like to rule it out given his history. He does take Eliquis. Patient has no other complaints at this time including shortness of breath, chest pain, abdominal pain, nausea or vomiting, headache, or visual changes. - Related Data Home Medications Medication Instructions Recorded Confirmed Apixaban [Eliquis] 5 mg PO BID@0700,1900 12/02/21 12/03/21 Calcium Carbonate [Tums] 1,000 mg PO TID PRN 12/02/21 12/03/21 Allergies Allergy/AdvReac Type Severity Reaction Status Date / Time Penicillins Allergy Rash/Hives Verified 01/28/22 08:00 at waist line Review of Systems ROS Statement: Those systems with pertinent positive or pertinent negative responses have been documented in the HPI. ROS Other: All systems not noted in ROS Statement are negative. Past Medical History Past Medical History: Deep Vein Thrombosis (DVT), Pulmonary Embolus (PE) Additional Past Medical History / Comment(s): kidney stones History of Any Multi-Drug Resistant Organisms: None Reported Past Surgical History: Bariatric Surgery Additional Past Surgical History / Comment(s): covid novembr 2020 Past Psychological History: No Psychological Hx Reported Smoking Status: Never smoker Past Alcohol Use History: Rare Past Drug Use History: None Reported General Exam Limitations: no limitations General appearance: alert, in no apparent distress Head exam: Present: atraumatic Eye exam: Present: normal appearance, PERRL, EOMI. Absent: scleral icterus, conjunctival injection ENT exam: Present: normal exam, mucous membranes moist Neck exam: Present: normal inspection, full ROM. Absent: tenderness Respiratory exam: Present: normal lung sounds bilaterally. Absent: respiratory distress, wheezes Cardiovascular Exam: Present: regular rate, normal rhythm, normal heart sounds Extremities exam: Present: full ROM (Full range of motion of the left lower leg), normal capillary refill (Capillary refill less than 2 seconds, DP pulse 2+ left lower extremity). Absent: tenderness (No tenderness of the left calf) Course Vital Signs 01/28/22 07:57 Temperature 98 F Pulse Rate 70 Respiratory 18 Rate Blood Pressure 130/83 O2 Sat by Pulse 98 Oximetry Medical Decision Making - Medical Decision Making Ultrasound is negative of the left lower extremity. Pain is likely m usculoskeletal in nature. At this time patient can be discharged home to follow up with primary care. Will return here for any worsening symptoms. Disposition Clinical Impression: Leg pain, left Disposition: HOME SELF-CARE Condition: Good Instructions (If sedation given, give patient instructions): Leg Pain (ED) Additional Instructions: Please follow up with primary care in 1-2 days. Return to the ER for any worsening symptoms. Is patient prescribed a controlled substance at d/c from ED?: No Referrals: Lee Bran MD [Primary Care Provider] - 1-2 days Time of Disposition: 08:57
--- NOTE | 2022-01-28 08:50 | US ---
EXAMINATION TYPE: US venous doppler duplex LE LT DATE OF EXAM: 01/28/2022 8:24 AM COMPARISON: NONE CLINICAL HISTORY: 51-year-old male with left lateral leg pain, h/o PE's and DVT in right leg a few mo nths ago, still on thinners. SIDE PERFORMED: Left TECHNIQUE: The lower extremity deep venous system is examined utilizing real time linear array sonog sheri with graded compression, doppler sonography and color-flow sonography. FINDINGS: VESSELS IMAGED: Common Femoral Vein Deep Femoral Vein Greater Saphenous Vein * Femoral Vein Popliteal Vein Small Saphenous Vein * Proximal Calf Veins (* superficial vessels) Left Leg: Negative for DVT IMPRESSION: No evidence for DVT within the left lower extremity.
[2022-01-28 09:11] VITALS: BP 128/83; PULSE 67
== END 2022-01-28 09:06 | disposition home or self-care (01) ==
LOC: EC 07:47
DX: M79.605 Pain in left leg (principal); Z88.0 Allergy status to penicillin

== ENCOUNTER 2022-03-01 11:01 | Emergency (ER) | payer BC ==
[2022-03-01 11:11] VITALS: BP 114/85; PULSE 84; RESP 16; TEMP 98.3
--- NOTE | 2022-03-01 12:16 | US ---
EXAMINATION TYPE: US venous doppler duplex LE RT DATE OF EXAM: 03/01/2022 12:03 PM COMPARISON: US bilateral November 07 2021 CLINICAL HISTORY: poss blood clot. Right leg pain, patient on blood thinners SIDE PERFORMED: Right TECHNIQUE: The lower extremity deep venous system is examined utilizing real time linear array sonog sheri with graded compression, doppler sonography and color-flow sonography. VESSELS IMAGED: Common Femoral Vein Deep Femoral Vein Greater Saphenous Vein * Femoral Vein Popliteal Vein Small Saphenous Vein * Proximal Calf Veins (* superficial vessels) Right Leg: Positive for DVT anterior proximal calf vein Scanned patient's right medial upper thigh at area of concern: appears wnl Grayscale, color doppler, spectral doppler imaging performed of the deep veins of the right lower ext remity. There is normal flow, compressibility, vascular waveforms. IMPRESSION: Marked improvement in DVT from prior study, some occlusive thrombus below the knee in th e proximal calf vein remains present.
--- NOTE | 2022-03-01 12:45 | ED ---
General Adult HPI - General Chief complaint: Recheck/Abnormal Lab/Rx Stated complaint: possible blood clot in leg Time Seen by Provider: 03/01/22 11:27 Source: patient, RN notes reviewed Mode of arrival: ambulatory Limitations: no limitations - History of Present Illness Initial comments: this a 51-year-old male presents emergency Department chief complaint of leg pain. Patient had a few intermittent episodes of leg pain but has resolved. He is concerned has he has a DVT in that leg. Patient states that he has no chest pain, shortness breath, fever, chills,) Currently. Patient states he is L [place]. Patient states that he had a DVT from covert. Patient offers no complaints denies any back pain no bowel bladder incontinence or retention. - Related Data Home Medications Medication Instructions Recorded Confirmed Apixaban [Eliquis] 5 mg PO BID@0700,1900 12/02/21 12/03/21 Calcium Carbonate [Tums] 1,000 mg PO TID PRN 12/02/21 12/03/21 Allergies Allergy/AdvReac Type Severity Reaction Status Date / Time Penicillins Allergy Rash/Hives Verified 03/01/22 11:10 at waist line Review of Systems ROS Statement: Those systems with pertinent positive or pertinent negative responses have been documented in the HPI. ROS Other: All systems not noted in ROS Statement are negative. Past Medical History Past Medical History: Deep Vein Thrombosis (DVT), Pulmonary Embolus (PE) Additional Past Medical History / Comment(s): kidney stones History of Any Multi-Drug Resistant Organisms: None Reported Past Surgical History: Bariatric Surgery Additional Past Surgical History / Comment(s): covid novembr 2020 Past Psychological History: No Psychological Hx Reported Smoking Status: Never smoker Past Alcohol Use History: Rare Past Drug Use History: None Reported General Exam Limitations: no limitations General appearance: alert, in no apparent distress Head exam: Present: atraumatic, normocephalic, normal inspection Eye exam: Present: normal appearance, PERRL, EOMI. Absent: scleral icterus, conjunctival injection, periorbital swelling ENT exam: Present: normal exam, normal oropharynx, mucous membranes moist Neck exam: Present: normal inspection, full ROM. Absent: tenderness, meningismus, lymphadenopathy Respiratory exam: Present: normal lung sounds bilaterally. Absent: respiratory distress, wheezes, rales, rhonchi, stridor Cardiovascular Exam: Present: regular rate, normal rhythm, normal heart sounds. Absent: systolic murmur, diastolic murmur, rubs, gallop, clicks Extremities exam: Present: other (Lower extremity strength equal bilaterally equal pedal pulses, no swelling no tenderness full strength) Back exam: Present: full ROM. Absent: tenderness, paraspinal tenderness, ve rtebral tenderness Course Vital Signs 03/01/22 11:08 Temperature 98.3 F Pulse Rate 84 Respiratory 16 Rate Blood Pressure 114/85 O2 Sat by Pulse 97 Oximetry Medical Decision Making - Medical Decision Making Ultrasound shows clot which was present on prior ultrasound 4 months ago, shows markedly improvement. Patient has or complaints patient discharged in stable condition he'll continue on. Disposition Clinical Impression: Chronic deep vein thrombosis of leg Disposition: HOME SELF-CARE Condition: Stable Instructions (If sedation given, give patient instructions): Deep Vein Thrombosis (ED) Additional Instructions: Please return to the Emergency Department if symptoms worsen or any other concerns. Is patient prescribed a controlled substance at d/c from ED?: No Referrals: Lee Bran MD [Primary Care Provider] - 1-2 days Time of Disposition: 12:45
== END 2022-03-01 12:56 | disposition home or self-care (01) ==
LOC: EC 11:01
DX: I82.509 Chronic embolism and thrombosis of unspecified deep veins of unspecified lower extremity (principal)
CPT/HCPCS: 99283

== ENCOUNTER 2022-03-13 06:35 | Emergency (ER) | payer BC ==
[2022-03-13 06:51] VITALS: TEMP 97.2
--- NOTE | 2022-03-13 07:00 | ED ---
Headache HPI - General Chief Complaint: Headache Stated Complaint: Headache Time Seen by Provider: 03/13/22 06:51 Source: patient, RN notes reviewed Mode of arrival: ambulatory Limitations: no limitations - History of Present Illness Initial Comments: This a 51-year-old male presents emergency Department chief complaint of a headache. Patient states he's been having intermittent headaches after hitting his head on a branch while weed whipping his house. Patient states that he did hit significantly hard denies any LOC, blurred vision, focal weakness. Patient is requesting was sent in here for evaluation as she's had some minor intermittent headaches. Patient offers no other complaints. Patient is on eliquis - Related Data Home Medications Medication Instructions Recorded Confirmed Apixaban [Eliquis] 5 mg PO BID@0700,1900 12/02/21 12/03/21 Calcium Carbonate [Tums] 1,000 mg PO TID PRN 12/02/21 12/03/21 Allergies Allergy/AdvReac Type Severity Reaction Status Date / Time Penicillins Allergy Rash/Hives Verified 03/13/22 06:51 at waist line Review of Systems ROS Statement: Those systems with pertinent positive or pertinent negative responses have been documented in the HPI. ROS Other: All systems not noted in ROS Statement are negative. Past Medical History Past Medical History: Deep Vein Thrombosis (DVT), Pulmonary Embolus (PE) Additional Past Medical History / Comment(s): kidney stones History of Any Multi-Drug Resistant Organisms: None Reported Past Surgical History: Bariatric Surgery Additional Past Surgical History / Comment(s): covid novembr 2020 Past Psychological History: No Psychological Hx Reported Smoking Status: Never smoker Past Alcohol Use History: Rare Past Drug Use History: None Reported General Exam Limitations: no limitations General appearance: alert, in no apparent distress Head exam: Present: atraumatic, normocephalic, normal inspection Eye exam: Present: normal appearance, PERRL, EOMI. Absent: scleral icterus, conjunctival injection, periorbital swelling ENT exam: Present: normal exam, normal oropharynx, mucous membranes moist Neck exam: Present: normal inspection, full ROM. Absent: tenderness, meningismus, lymphadenopathy Respiratory exam: Present: normal lung sounds bilaterally. Absent: respiratory distress, wheezes, rales, rhonchi, stridor Cardiovascular Exam: Present: regular rate, normal rhythm, normal heart sounds. Absent: systolic murmur, diastolic murmur, rubs, gallop, clicks Neurological exam: Present: alert, oriented X3, CN II-XII intact, reflexes normal. Absent: motor sensory deficit Skin exam: Present: warm, dry, intact, normal color. Absent: rash Course Vital Signs 03/13/22 06:46 Temperature 97.2 F L Pulse Rate 78 Respiratory 16 Rate Blood Pressure 131/98 O2 Sat by Pulse 100 Oximetry Medical Decision Making - Medical Decision Making CT is negative for acute injury. Patient has a minor scalp contusion. Patient discharged in stable condition with return parameters discussed. Disposition Clinical Impression: Head contusion Disposition: HOME SELF-CARE Condition: Stable Instructions (If sedation given, give patient instructions): Head Injury (ED) Additional Instructions: Please return to the Emergency Department if symptoms worsen or any other concerns. Is patient prescribed a controlled substance at d/c from ED?: No Referrals: Lee Bran MD [Primary Care Provider] - 1-2 days Time of Disposition: 07:00
--- NOTE | 2022-03-13 07:37 | CT ---
EXAMINATION TYPE: CT brain wo con DATE OF EXAM: 03/13/2022 COMPARISON: None INDICATION: bumped his head on a tree branch on , occasional MATA since, on blood thinners DLP: 1202.4 mGycm, Automated exposure control for dose reduction was used. CONTRAST: None CT of the brain is performed utilizing 3 mm thick sections through the posterior fossa and 3 mm thick sections through the remaining calvarium. Study is performed within 24 hours of arrival to the hosp [facility]. No abnormal hyperdensity is present to suggest an acute or subacute intracranial hemorrhage. MRI can be performed if additional evaluation would be of benefit. No mass lesion is evident. No acute infarcts are evident. MRI can be performed if additional evaluation would be of benefit. Ventricles and sulci are appropriate for the patient age. Mucous retention cyst along the medial wall left maxillary sinus. A couple small anterior maxillary s inus retention cyst may be present. Small retention cyst or mucosal thickening may be within the left sphenoid sinus. Remaining paranasal sinuses and mastoid air cells are clear. IMPRESSIONS: 1. No acute intracranial process. MRI can be performed if additional evaluation would be of benefit .
[2022-03-13 08:15] VITALS: BP 124/78; PULSE 80; RESP 18
== END 2022-03-13 08:15 | disposition home or self-care (01) ==
LOC: EC 06:35
DX: S00.93XA Contusion of unspecified part of head, initial encounter (principal); Z86.718 Personal history of other venous thrombosis and embolism; Z72.89 Other problems related to lifestyle; Z79.01 Long term (current) use of anticoagulants; Z88.0 Allergy status to penicillin; W22.8XXA Striking against or struck by other objects, initial encounter; Y93.H2 Activity, gardening and landscaping
CPT/HCPCS: 70450; 99283

== ENCOUNTER 2022-04-18 10:01 | Emergency (ER) | payer BC ==
[2022-04-18 10:05] VITALS: BP 129/82; PULSE 82; RESP 18; TEMP 98.5
--- NOTE | 2022-04-18 10:59 | ED ---
General Adult HPI - General Chief complaint: Recheck/Abnormal Lab/Rx Stated complaint: Headaches,Prior head trauma Time Seen by Provider: 04/18/22 10:10 Source: patient Mode of arrival: ambulatory Limitations: no limitations - History of Present Illness Initial comments: Patient is a 52-year-old male who presents to the emergency department with chief complaint of headache. Patient states he sustained a concussion approximately one month ago due to hitting a branch while weed whacking. Patient states the headache from his concussion resolved in about 10 days. He states his headache returned one week ago. States the headache feels similar to the headache from his concussion. Describes it as a very mild pain that migrates all over his head, 1/10 in severity. Patient is on Eliquis for DVT and PE. Patient states his jowl trimmer Dr. Jackson and crate liner Dr. Amaya suggested he be evaluated with CT scan. Patient denies blurry vision, double vision, focal weakness, dizziness, lightheadedness, balance issues, chest pain, shortness of breath, abdominal pain, nausea, vomiting, and other concerns. - Related Data Home Medications Medication Instructions Recorded Confirmed Apixaban [Eliquis] 5 mg PO BID@0700,1900 12/02/21 12/03/21 Calcium Carbonate [Tums] 1,000 mg PO TID PRN 12/02/21 12/03/21 Allergies Allergy/AdvReac Type Severity Reaction Status Date / Time Penicillins Allergy Rash/Hives Verified 04/18/22 10:05 at waist line Review of Systems ROS Statement: Those systems with pertinent positive or pertinent negative responses have been documented in the HPI. ROS Other: All systems not noted in ROS Statement are negative. Past Medical History Past Medical History: Deep Vein Thrombosis (DVT), Pulmonary Embolus (PE) Additional Past Medical History / Comment(s): kidney stones History of Any Multi-Drug Resistant Organisms: None Reported Past Surgical History: Bariatric Surgery Additional Past Surgical History / Comment(s): covid novembr 2020 Past Psychological History: No Psychological Hx Reported Smoking Status: Never smoker Past Alcohol Use History: Rare Past Drug Use History: None Reported General Exam Limitations: no limitations General appearance: alert, in no apparent distress Head exam: Present: atraumatic, normocephalic, normal inspection Eye exam: Present: normal appearance, PERRL, EOMI. Absent: scleral icterus, conjunctival injection, periorbital swelling Neck exam: Present: normal inspection, full ROM. Absent: tenderness Respiratory exam: Present: normal lung sounds bilaterally. Absent: respiratory distress, wheezes, rales, rhonchi, stridor Cardiovascular Exam: Present: regular rate, normal rhythm, normal heart sounds. Absent: systolic murmur, diastolic murmur, rubs, gallop, clicks Neurological exam: Present: alert, oriented X3, CN II-XII intact Psychiatric exam: Present: normal affect, normal mood Skin exam: Present: warm, dry, intact, normal color. Absent: rash Course Vital Signs 04/18/22 10:02 Temperature 98.5 F Pulse Rate 82 Respiratory 18 Rate Blood Pressure 129/82 O2 Sat by Pulse 97 Oximetry Medical Decision Making - Medical Decision Making This is a 52-year-old male on Eliquis presenting with headache. Thorough history and examination were performed. CT of the brain is negative for acute process. Patient will be discharged with instruction follow-up with primary care provider. Dr. Saavedra is my attending. Disposition Clinical Impression: Headache Disposition: HOME SELF-CARE Condition: Good Instructions (If sedation given, give patient instructions): Concussion (ED), Post Concussion Syndrome (ED) Additional Instructions: Follow-up with primary care provider. Return to the emergency department if you experience new, concerning, or worsening symptoms. Is patient prescribed a controlled substance at d/c from ED?: No Referrals: Lee Bran MD [Primary Care Provider] - 1-2 days Time of Disposition: 11:32
--- NOTE | 2022-04-18 11:27 | CT ---
EXAMINATION TYPE: CT brain wo con CT DLP: 1200.4 mGycm, Automated exposure control for dose reduction was used. DATE OF EXAM: 04/18/2022 11:06 AM COMPARISON: CT brain 03/13/2022. CLINICAL INDICATION:Male, 52 years old with history of headache, recent concussion on thinners, heada samaria, recent concussion on thinners TECHNIQUE: Brain: Axial CT images of the brain were obtained with coronal and sagittal reformats created and rev iewed. Contrast used: None. Oral contrast used: None. FINDINGS: Brain: Extra-axial spaces: No abnormal extra-axial fluid collections. Ventricular system: Within normal limits Cerebral parenchyma: No acute intraparenchymal hemorrhage or mass effect. The king-white junction is well differentiated. Cerebellum: Unremarkable. Mass effect: No evidence of midline shift. Intracranial vasculature: Atherosclerotic calcifications of the intracranial vessels. Soft tissues: Normal. Calvarium/osseous structures: No depressed skull fracture. Paranasal sinuses and mastoid air cells: Mild scattered paranasal sinus disease. Visualized orbits: Orbital contents are intact. IMPRESSION: No acute intracranial process.
== END 2022-04-18 11:36 | disposition home or self-care (01) ==
LOC: EC 10:01
DX: R51.9 Headache, unspecified (principal); Z86.718 Personal history of other venous thrombosis and embolism; Z88.0 Allergy status to penicillin; Z79.899 Other long term (current) drug therapy
CPT/HCPCS: 70450; 99283

== ENCOUNTER 2022-06-13 22:01 | Emergency (ER) | payer BC ==
[2022-06-13 22:07] VITALS: PULSE 71; TEMP 98.3
--- NOTE | 2022-06-13 23:01 | US ---
EXAMINATION TYPE: US venous doppler duplex LE DATE OF EXAM: 06/13/2022 10:40 PM COMPARISON: 11/07/21 CLINICAL HISTORY: BILATERAL DISCOMFORT IN LEGS- HX OF DVT. Bilateral discomfort in legs. Hx of DVT in right popliteal vein. Not on blood thinners SIDE PERFORMED: Bilateral TECHNIQUE: The lower extremity deep venous system is examined utilizing real time linear array sonog sheri with graded compression, doppler sonography and color-flow sonography. VESSELS IMAGED: Common Femoral Vein Deep Femoral Vein Greater Saphenous Vein * Femoral Vein Popliteal Vein Small Saphenous Vein * Proximal Calf Veins (* superficial vessels) Right Leg: Distal popliteal vein was not compressinble. Echoes seen within Left Leg: No evidence of DVT IMPRESSION: There is evidence of acute deep vein thrombosis in the right popliteal vein. No evidence of deep vein thrombosis in the left leg.
[2022-06-13] MEDS ORDERED: APIXABAN 5 MG TAB PO STA (23:11)
--- NOTE | 2022-06-13 23:23 | ED ---
Extremity Problem HPI - General Chief complaint: Extremity Problem,Nontraumatic Stated complaint: DVT Left leg Time Seen by Provider: 06/13/22 22:23 Source: patient Mode of arrival: ambulatory Limitations: no limitations - History of Present Illness Initial comments: Patient is a 52-year-old male with a past medical history of DVT and bilateral PE in October 2021 presents to the emergency department with a chief complaint of bilateral leg pain. Patient states pain has occurred intermittently behind both of his knees and in his calves for the past few months. States he had ultrasound in February 2022 which showed improvement of previously existing right lower extremity DVT. Patient was taken off Eliquis by his curve saw operator Dr. Jackson in April. His pain has not changed. It still occurs intermittently in the bilateral lower extremities however patient is more nervous that he has a DVT due to not being on a blood thinner. He has not noticed any leg swelling. Denies chest pain and shortness of breath. Of note, patient's previous DVT with PE complication was related to covid-19 infection. Patient denies recent airplane travel or long car rides. Denies history of smoking. - Related Data Home Medications Medication Instructions Recorded Confirmed Apixaban [Eliquis] 5 mg PO BID@0700,1900 12/02/21 12/03/21 Calcium Carbonate [Tums] 1,000 mg PO TID PRN 12/02/21 12/03/21 Previous Rx's Medication Instructions Recorded Apixaban [Eliquis Starter Pack 5 - 10 mg PO DIRECTED 30 Days 06/13/22 (for VTE)] #1 each Allergies Allergy/AdvReac Type Severity Reaction Status Date / Time Penicillins Allergy Rash/Hives Verified 06/13/22 22:07 at waist line Review of Systems ROS Statement: Those systems with pertinent positive or pertinent negative responses have been documented in the HPI. ROS Other: All systems not noted in ROS Statement are negative. Past Medical History Past Medical History: Deep Vein Thrombosis (DVT), Pulmonary Embolus (PE) Additional Past Medical History / Comment(s): kidney stones History of Any Multi-Drug Resistant Organisms: None Reported Past Surgical History: Bariatric Surgery Additional Past Surgical History / Comment(s): covid [email or web address] Past Psychological History: No Psychological Hx Reported Smoking Status: Never smoker Past Alcohol Use History: Rare Past Drug Use History: None Reported General Exam Limitations: no limitations General appearance: alert, in no apparent distress Respiratory exam: Present: normal lung sounds bilaterally. Absent: respiratory distress, wheezes, rales, rhonchi, stridor Cardiovascular Exam: Present: regular rate, normal rhythm, normal heart sounds. Absent: systolic murmur, diastolic murmur, rubs, gallop, clicks Extremities exam: Present: normal inspection, full ROM, normal capillary refill. Absent: tenderness, pedal edema, joint swelling (While here), calf tenderness Neurological exam: Present: alert, oriented X3, CN II-XII intact Psychiatric exam: Present: normal affect, normal mood Skin exam: Present: warm, dry, intact, normal color. Absent: rash Course Vital Signs 06/13/22 06/13/22 22:05 23:32 Temperature 98.3 F Pulse Rate 71 71 Respiratory 20 16 Rate Blood Pressure 156/97 139/94 O2 Sat by Pulse 98 98 Oximetry Medical Decision Making - Medical Decision Making This is a 52-year-old who presents for possible DVT. Patient well-appearing. No shortness of breath or chest pain. No hypoxia or tachycardia. No calf pain or swelling. Bilateral lower extremity ultrasound with Doppler shows evidence of acute deep vein thrombosis in the right popliteal vein. There is no evidence of deep vein thrombosis in the left leg. Results discussed with patient. Patient will be placed on Eliquis. First dose given in the emergency department and he'll be discharged with Eliquis. He will follow-up with Dr. Jcakson. Strict return parameters discussed. He verbalizes understanding and is agreeable to this plan. Dr. Horton is my attending. Disposition Clinical Impression: Deep vein thrombosis (DVT) of lower extremity Disposition: HOME SELF-CARE Condition: Good Additional Instructions: Take medication as directed. Follow-up with vascular specialist in 1-2 days. Return to the emergency department if you experience new, concerning, or worsening symptoms, including but not limited to chest pain, lightheadedness, dizziness, or shortness of breath Prescriptions: Apixaban [Eliquis Starter Pack (for VTE)] 5 - 10 mg PO DIRECTED 30 Days #1 each Is patient prescribed a controlled substance at d/c from ED?: No Referrals: Lee Bran MD [Primary Care Provider] - 1-2 days Caty Somers DO [STAFF PHYSICIAN] - 1-2 days
[2022-06-13 23:33] VITALS: BP 139/94; RESP 16
== END 2022-06-13 23:33 | disposition home or self-care (01) ==
LOC: EC 22:01
DX: I82.422 Acute embolism and thrombosis of left iliac vein (principal); Z88.0 Allergy status to penicillin
CPT/HCPCS: 93970; 99283

== ENCOUNTER 2022-08-01 12:21 | Emergency (ER) | payer BC ==
[2022-08-01 12:27] VITALS: BP 133/80; PULSE 84; RESP 20; TEMP 98.5
--- NOTE | 2022-08-01 13:05 | ED ---
General Adult HPI - General Chief complaint: Extremity Problem,Nontraumatic Stated complaint: Poss Blood Clot in Leg Time Seen by Provider: 08/01/22 12:40 Source: patient, RN notes reviewed, old records reviewed Mode of arrival: ambulatory Limitations: no limitations - History of Present Illness Initial comments: This is a 52-year-old male who presents emergency Department stating that he has a history of blood clots and PEs. Patient states he has a little pain in the upper posterior thigh on the right he thinks it's just a muscle but because of his previous history does not want to risk it so he came to the emergency department. PATIENT DENIES ANY FEVER CHILLS OR COUGH PER PATIENT DENIES ANY SHORTNESS OF BREATH OR DIFFICULTY BREATHING. PATIENT DENIES ANY CHEST PAIN. PATIENT DENIES ANY NAUSEA VOMITING. PATIENT DENIES ABDOMINAL PAIN. - Related Data Home Medications Medication Instructions Recorded Confirmed Apixaban [Eliquis] 5 mg PO BID@0700,1900 12/02/21 12/03/21 Calcium Carbonate [Tums] 1,000 mg PO TID PRN 12/02/21 12/03/21 Previous Rx's Medication Instructions Recorded Apixaban [Eliquis Starter Pack 5 - 10 mg PO DIRECTED 30 Days 06/13/22 (for VTE)] #1 each Allergies Allergy/AdvReac Type Severity Reaction Status Date / Time Penicillins Allergy Rash/Hives Verified 08/01/22 12:27 at waist line Review of Systems ROS Statement: Those systems with pertinent positive or pertinent negative responses have been documented in the HPI. ROS Other: All systems not noted in ROS Statement are negative. Past Medical History Past Medical History: Deep Vein Thrombosis (DVT), Pulmonary Embolus (PE) Additional Past Medical History / Comment(s): kidney stones History of Any Multi-Drug Resistant Organisms: None Reported Past Surgical History: Bariatric Surgery Additional Past Surgical History / Comment(s): covid novembr 2020 Past Psychological History: No Psychological Hx Reported Smoking Status: Never smoker Past Alcohol Use History: Rare Past Drug Use History: None Reported General Exam - General Exam Comments Initial Comments: GENERAL: Patient is well-developed and well-nourished. Patient is nontoxic and well- hydrated and is in no acute distress. ENT: Neck is soft and supple. No significant lymphadenopathy is noted. Oropharynx is clear. Moist mucous membranes. Neck has full range of motion without eliciting any pain. EYES: The sclera were anicteric and conjunctiva were pink and moist. Extraocular movements were intact and pupils were equal round and reactive to light. Eyelids were unremarkable. SKIN: Skin is clear with no lesions or rashes and otherwise unremarkable. NEUROLOGIC: Patient is alert and oriented x3. Cranial nerves II through XII are grossly intact. Motor and sensory are also intact. Normal speech, volume and content. Symmetrical smile. MUSCULOSKELETAL: Normal extremities with adequate strength and full range of motion. No lower extremity swelling or edema. No calf tenderness. Patient has some very mild point tenderness in the upper posterior medial thigh and hamstring area. It hurts worse with movement and palpation. Wrist no swelling to the leg no redness of the leg LYMPHATICS: No significant lymphadenopathy is noted PSYCHIATRIC: Normal psychiatric evaluation. Limitations: no limitations Course Vital Signs 08/01/22 12:25 Temperature 98.5 F Pulse Rate 84 Respiratory 20 Rate Blood Pressure 133/80 O2 Sat by Pulse 98 Oximetry Medical Decision Making - Medical Decision Making Patient states he has a chronic DVT in the right leg below the knee and ultrasound confirm this. I spoke with the radiologist myself and he stated there was no change from the previous ultrasound. Disposition Clinical Impression: Right hamstring muscle strain Disposition: HOME SELF-CARE Condition: Good Is patient prescribed a controlled substance at d/c from ED?: No Referrals: Lee Bran MD [Primary Care Provider] - 1-2 days Time of Disposition: 13:45
--- NOTE | 2022-08-01 13:42 | US ---
EXAMINATION TYPE: US venous doppler duplex LE RT DATE OF EXAM: 08/01/2022 1:31 PM COMPARISON: Prior bilateral venous ultrasound June 13, 2022 CLINICAL HISTORY: Pain upper posterior thigh. right thigh pain, history of DVT SIDE PERFORMED: right TECHNIQUE: The lower extremity deep venous system is examined utilizing real time linear array sonog sheri with graded compression, doppler sonography and color-flow sonography. VESSELS IMAGED: Common Femoral Vein Deep Femoral Vein Greater Saphenous Vein * Femoral Vein Popliteal Vein Small Saphenous Vein * Proximal Calf Veins (* superficial vessels) Right Leg: +positive for DVT right popliteal vein distal Grayscale, color doppler, spectral doppler imaging performed of the deep veins of the right lower ext remity. There is normal flow, compressibility, vascular waveforms. IMPRESSION: Persistent complete occlusive DVT in the distal right popliteal vein similar in appearan ce to most recent ultrasound.
== END 2022-08-01 13:51 | disposition home or self-care (01) ==
LOC: EC 12:21
DX: S76.311A Strain of muscle, fascia and tendon of the posterior muscle group at thigh level, right thigh, initial encounter (principal); Z86.718 Personal history of other venous thrombosis and embolism; Z88.0 Allergy status to penicillin; Z79.899 Other long term (current) drug therapy; X58.XXXA Exposure to other specified factors, initial encounter
CPT/HCPCS: 99283

== ENCOUNTER 2022-10-10 10:25 | Emergency (ER) | payer BC ==
[2022-10-10 10:46] VITALS: TEMP 98.4
--- NOTE | 2022-10-10 10:47 | ED ---
General Adult HPI <Emmanuelle Harp - Last Filed: 10/10/22 10:46> - General Source: patient, RN notes reviewed, old records reviewed <Stan Horton - Last Filed: 10/10/22 13:34> - General Stated complaint: abn labs, poss DVT Time Seen by Provider: 10/10/22 10:46 - History of Present Illness Initial comments: 52-year-old male with a history of PE and DVTs presents the emergency department from PCP office to rule out PE and DVT. Patient denies shortness of breath. Patient denies current anticoagulant use. Patient reports elevated D- Dimer. (Emmanuelle Harp) Patient is a 52-year-old male with past medical history remarkable for PE, DVT provoked by a COVID-19 infection no longer on anticoagulation. He presents emergency Department as seen elevated d-dimer at the outpatient lab from his PCPs office. Is uncertain what the level was, but was slightly elevated. Presents for further workup to rule out blood clot. Denies any other acute complaints at this time other than anxiety regarding this. Denies shortness of breath, chest pain, abdominal pain, nausea, vomiting lower extremity swelling. No other acute complaints. He is not on blood thinners. Presents for reevaluation. I evaluated patient when he was placed. Workup was started. (Stan Horton) - Related Data Home Medications Medication Instructions Recorded Confirmed Aspirin EC [Ecotrin Low Dose] 81 mg PO DAILY 10/10/22 10/10/22 busPIRone HCL 10 mg PO BID 10/10/22 10/10/22 Allergies Allergy/AdvReac Type Severity Reaction Status Date / Time Penicillins Allergy Rash/Hives Verified 10/10/22 11:54 at waist line Review of Systems ROS Other: All systems not noted in ROS Statement are negative. <Emmanuelle Harp - Last Filed: 10/10/22 10:46> ROS Other: All systems not noted in ROS Statement are negative. <Stan Horton - Last Filed: 10/10/22 13:34> ROS Statement: Those systems with pertinent positive or pertinent negative responses have been documented in the HPI. Review of Systems: CONST: Denies fever EYES: Denies blurry vision ENT: Denies nasal congestion C/V: Denies Chest pain RESP: Denies shortness of breath GI: Denies abdominal pain : Denies dysuria SKIN: Denies rash. MSK: Denies joint pain. NEURO: Denies headache (Stan Horton) Past Medical History Past Medical History: Deep Vein Thrombosis (DVT), Pulmonary Embolus (PE) Additional Past Medical History / Comment(s): kidney stones History of Any Multi-Drug Resistant Organisms: None Reported Past Surgical History: Bariatric Surgery Additional Past Surgical History / Comment(s): covid novembr 2020 Past Psychological History: No Psychological Hx Reported Smoking Status: Never smoker Past Alcohol Use History: Rare Past Drug Use History: None Reported <Emmanuelle Harp - Last Filed: 10/10/22 10:46> Course Vital Signs 10/10/22 10/10/22 10:43 10:51 Temperature 98.4 F Pulse Rate 83 Respiratory 20 16 Rate Blood Pressure 148/96 O2 Sat by Pulse 99 Oximetry Medical Decision Making - Lab Data Result diagrams: 10/10/22 11:00 10/10/22 11:00 - EKG Data -: EKG Interpreted by Me <Stan Horton - Last Filed: 10/10/22 13:34> - Medical Decision Making Based on the patient's presentation and physical exam, I am concerned for possible DVT or PE. We do not have access to his previous labs and therefore we will obtain labs including d-dimer. To not delay care, bilateral lower extremity ultrasounds will be obtained. He was in agreement this plan. He is asymptomatic otherwise. Vital signs within acceptable limits. Patient's laboratory studies are remarkable for a normal d-dimer of 0.25. Troponin is undetectable. EKG showed no signs of ischemia. Venous duplex is negative for DVT and bilateral lower extremities. At this time I did discuss the negative workup with the patient that he states for ease of mind would still like the CT PE. Therefore CT PE was obtained and was negative for acute PE. I updated the patient. She expressed understanding. I believe it is safe for him to be discharged home at this time. He was in agreement this plan. I instructed the patient to follow up with their PCP in the next 1-3 days. I explained that the patient should return to the emergency department if they experience any worsening symptoms. Strict return precautions were discussed with the patient. The patient expressed understanding of these instructions. I ans wered all questions that the patient had. The patient was discharged home in good condition with their prescriptions and follow up information. Was pt. sent in by a medical professional or institution (, [facility], ROAD MACHINE [employer]NER, urgent care, hospital, or senior living...) When possible be specific @ -Yes, his PCP office for elevated d-dimer. Did you speak to anyone other than the patient for history (EMS, parent, family, police, friend...)? What history was obtained from this source @ -No Did you review nursing and triage notes (agree or disagree)? Why? @ -I reviewed and agree with nursing and triage notes Were old charts reviewed (outside hosp., previous admission, EMS record, old EKG, old radiological studies, urgent care reports/EKG's, senior living records)? Report findings @ -Yes, old EKG was reviewed from November 2021. Differential Diagnosis (chest pain, altered mental status, abdominal pain women, abdominal pain men, vaginal bleeding, weakness, fever, dyspnea, syncope, headache, dizziness, GI bleed, back pain, seizure, CVA, palpatations, mental health)? @ -PE, DVT, falsely elevated d-dimer. This list is not all inclusive. EKG interpreted by me (3pts min.). @ -As above X-rays interpreted by me (1pt min.). @ -None done CT interpreted by me (1pt min.). @ -CT PE revealed no evidence of pulmonary embolism. U/S interpreted by me (1pt. min.). @ -Bilateral lower extremity duplexes revealed no evidence of DVT. What testing was considered but not performed or refused? (CT, X-rays, U/S, labs)? Why? @ -None What meds were considered but not given or refused? Why? @ -None Did you discuss the management of the patient with other professionals (professionals i.e. [facility]HA Sharma, ROAD MACHINE RUNNER, lab, RT, psych nurse, child protective services social worker, worm picker, teacher, airport operations officer, case specialist)? Give summary @ -No Was smoking cessation discussed for >3mins.? @ -No Was critical care preformed (if so, how long)? @ -No Were there social determinants of health that impacted care today? How? (Homelessness, low income, unemployed, alcoholism, drug addiction, transportation, low edu. Level, literacy, decrease access to med. care, nursing home, rehab)? @ -No Was there de-escalation of care discussed even if they declined (Discuss DNR or withdrawal of care, Hospice)? DNR status @ -No What co-morbidities impacted this encounter? (DM, HTN, Smoking, COPD, CAD, Cancer, CVA, ARF, Chemo, Hep., AIDS, mental health diagnosis, sleep apnea, morbid obesity)? @ -Prior history of PE and DVT. Was patient admitted / discharged? Hospital course, mention meds given and route, prescriptions, significant lab abnormalities, going to OR and other pertinent info. @ -Discharged home. See above for ED course. Undiagnosed new problem with uncertain prognosis? @ -No Drug Therapy requiring intensive monitoring for toxicity (Heparin, Nitro, Insulin, Cardizem)? @ -No Were any procedures done? @ -No Diagnosis/symptom? @ -Encounter For abnormal laboratory test results Acute, or Chronic, or Acute on Chronic? @ -Acute Uncomplicated (without systemic symptoms) or Complicated (systemic symptoms)? @ -Uncomplicated Side effects of treatment? @ -No Exacerbation, Progression, or Severe Exacerbation? @ -No Poses a threat to life or bodily function? How? (Chest pain, [place], [place], pneumonia, PE, COPD, DKA, ARF, appy, cholecystitis, CVA, Diverticulitis, Homicidal, Suicidal, threat to staff... and all critical care pts) @ -No Diagnosis/symptom? @ -History of PE Acute, or Chronic, or Acute on Chronic? @ -Chronic Uncomplicated (without systemic symptoms) or Complicated (systemic symptoms)? @ -Uncomplicated Side effects of treatment? @ -none Exacerbation, Progression, or Severe Exacerbation] @ -no Poses a threat to life or bodily function? @ -no (Stan Horton) - Lab Data Lab Results 10/10/22 10/10/22 10/10/22 Range/Units 11:00 11:00 11:00 WBC 6.1 (3.8-10.6) k/uL RBC 5.19 (4.30-5.90) m/uL Hgb 15.6 (13.0-17.5) gm/dL Hct 45.9 (39.0-53.0) % MCV 88.4 (80.0-100.0) fL MCH 30.1 (25.0-35.0) pg MCHC 34.1 (31.0-37.0) g/dL RDW 13.4 (11.5-15.5) % Plt Count 166 (150-450) k/uL MPV 8.5 Neutrophils % 68 % Lymphocytes % 22 % Monocytes % 6 % Eosinophils % 2 % Basophils % 1 % Neutrophils # 4.1 (1.3-7.7) k/uL Lymphocytes # 1.3 (1.0-4.8) k/uL Monocytes # 0.3 (0-1.0) k/uL Eosinophils # 0.1 (0-0.7) k/uL Basophils # 0.1 (0-0.2) k/uL PT 10.2 (9.0-12.0) sec INR 1.0 (<1.2) APTT 22.8 (22.0-30.0) sec D-Dimer 0.25 (<0.60) mg/L FEU Sodium 140 (137-145) mmol/L Potassium 4.2 (3.5-5.1) mmol/L Chloride 106 (98-107) mmol/L Carbon Dioxide 29 (22-30) mmol/L Anion Gap 5 mmol/L BUN 18 (9-20) mg/dL Creatinine 0.90 (0.66-1.25) mg/dL Est GFR (CKD-EPI)AfAm >90 (>60 ml/min/1.73 sqM) Est GFR (CKD-EPI)NonAf >90 (>60 ml/min/1.73 sqM) Glucose 93 (74-99) mg/dL Calcium 9.0 (8.4-10.2) mg/dL Total Bilirubin 0.8 (0.2-1.3) mg/dL AST 22 (17-59) U/L ALT 19 (4-49) U/L Alkaline Phosphatase 56 (38-126) U/L Troponin I (0.000-0.034) ng/mL Total Protein 7.4 (6.3-8.2) g/dL Albumin 4.4 (3.5-5.0) g/dL 10/10/22 Range/Units 11:00 WBC (3.8-10.6) k/uL RBC (4.30-5.90) m/uL Hgb (13.0-17.5) gm/dL Hct (39.0-53.0) % MCV (80.0-100.0) fL MCH (25.0-35.0) pg MCHC (31.0-37.0) g/dL RDW (11.5-15.5) % Plt Count (150-450) k/uL MPV Neutrophils % % Lymphocytes % % Monocytes % % Eosinophils % % Basophils % % Neutrophils # (1.3-7.7) k/uL Lymphocytes # (1.0-4.8) k/uL Monocytes # (0-1.0) k/uL Eosinophils # (0-0.7) k/uL Basophils # (0-0.2) k/uL PT (9.0-12.0) sec INR (<1.2) APTT (22.0-30.0) sec D-Dimer (<0.60) mg/L FEU Sodium (137-145) mmol/L Potassium (3.5-5.1) mmol/L Chloride (98-107) mmol/L Carbon Dioxide (22-30) mmol/L Anion Gap mmol/L BUN (9-20) mg/dL Creatinine (0.66-1.25) mg/dL Est GFR (CKD-EPI)AfAm (>60 ml/min/1.73 sqM) Est GFR (CKD-EPI)NonAf (>60 ml/min/1.73 sqM) Glucose (74-99) mg/dL Calcium (8.4-10.2) mg/dL Total Bilirubin (0.2-1.3) mg/dL AST (17-59) U/L ALT (4-49) U/L Alkaline Phosphatase (38-126) U/L Troponin I <0.012 (0.000-0.034) ng/mL Total Protein (6.3-8.2) g/dL Albumin (3.5-5.0) g/dL - EKG Data EKG Comments: 12-lead Electrocardiogram Interpretation Note EKG was reviewed and interpreted by myself. 12-lead ECG performed at 1104 is interpreted by me as revealing normal sinus rhythm at a rate of 61 beats per minute. [place] is normal. SC interval is 194 ms, QRS duration is 100 ms, QTc is 377 ms.. There is an isolated chronic T-wave inversion in lead III. There were no acute ST or T wave abnormalities to suggest myocardial ischemia or injury. R wave progression across the precordium was satisfactory. By my interpretation this EKG is non-diagnostic for acute ischemia. When compared with EKG from November 2021,no significant change. (Stan Horton) Disposition <Emmanuelle Harp - Last Filed: 10/10/22 10:46> Is patient prescribed a controlled substance at d/c from ED?: No Time of Disposition: 13:20 <Stan Horton - Last Filed: 10/10/22 13:34> Clinical Impression: Abnormal laboratory test result, History of pulmonary embolism Disposition: HOME SELF-CARE Condition: Good Referrals: Lee Bran MD [Primary Care Provider] - 1-2 days
[2022-10-10 11:14] LABS: Basophils # (A) 0.1 k/uL (0-0.2); Basophils % (A) 1 %; Eosinophils # (A) 0.1 k/uL (0-0.7); Eosinophils % (A) 2 %; HCT 45.9 % (39.0-53.0); HGB 15.6 gm/dL (13.0-17.5); Lymphocytes # (A) 1.3 k/uL (1.0-4.8); Lymphocytes % (A) 22 %; MCH 30.1 pg (25.0-35.0); MCHC 34.1 g/dL (31.0-37.0); MCV 88.4 fL (80.0-100.0); Mean Platelet Volume 8.5; Monocytes # (A) 0.3 k/uL (0-1.0); Monocytes % (A) 6 %; Neutrophils # (A) 4.1 k/uL (1.3-7.7); Neutrophils % (A) 68 %; Platelet Count 166 k/uL (150-450); RBC 5.19 m/uL (4.30-5.90); RDW 13.4 % (11.5-15.5); WBC 6.1 k/uL (3.8-10.6)
[2022-10-10 11:23] LABS: ALT 19 U/L (4-49); AST 22 U/L (17-59); African American GFR (CKD) >90 (>60 ml/min/1.73 sqM); Albumin 4.4 g/dL (3.5-5.0); Alkaline Phosphatase 56 U/L (38-126); Anion Gap 5 mmol/L; Blood Urea Nitrogen 18 mg/dL (9-20); Carbon Dioxide 29 mmol/L (22-30); Chloride 106 mmol/L (98-107); Glucose 93 mg/dL (74-99); Non-African American GFR(CKD) >90 (>60 ml/min/1.73 sqM); Potassium 4.2 mmol/L (3.5-5.1); Sodium 140 mmol/L (137-145); Total Bilirubin 0.8 mg/dL (0.2-1.3); Total Protein 7.4 g/dL (6.3-8.2)
[2022-10-10 11:33] LABS: Partial Thromboplastin Time 22.8 sec (22.0-30.0); Prothrombin Time 10.2 sec (9.0-12.0)
--- NOTE | 2022-10-10 11:50 | US ---
EXAMINATION TYPE: US venous doppler duplex LE BI DATE OF EXAM: 10/10/2022 11:39 AM COMPARISON: 08/01/2022 CLINICAL HISTORY: 52-year-old male rule out DVT. Hx of DVT right popliteal elevated d dimer. SIDE PERFORMED: Bilateral TECHNIQUE: The lower extremity deep venous system is examined utilizing real time linear array sonog sheri with graded compression, doppler sonography and color-flow sonography. FINDINGS: VESSELS IMAGED: Common Femoral Vein Deep Femoral Vein Greater Saphenous Vein * Femoral Vein Popliteal Vein Small Saphenous Vein * Proximal Calf Veins (* superficial vessels) Right Leg: Mid to Distal Popliteal Vein not completely compressing thready color flow visualized. Left Leg: Negative for DVT IMPRESSION: 1. On the right, there is partial compressibility of the mid and lower popliteal vein and thready col or flow is demonstrated here. Correlate for residual chronic DVT with some interval recanalization co mpared to 08/01/2022. 2. No evidence for DVT within the left lower extremity imaged from the groin to the upper calf.
--- NOTE | 2022-10-10 13:04 | CT ---
EXAMINATION TYPE: CT chest angio for PE DATE OF EXAM: 10/10/2022 COMPARISON: 11/07/2021 HISTORY: dyspnea, prior PE CT DLP: 799.5 mGycm CONTRAST: CT chest with contrast and 3D reconstruction with MIP imaging is performed with IV Contrast, patient injected with 100 CC mL of Isovue 370. Contrast-enhanced CT of the chest was performed through the course of the pulmonary arteries with emigdio g and mediastinal window settings submitted. 3D reconstruction with MIP imaging was also performed. PULMONARY ARTERIES: The pulmonary arteries and their major tributaries are patent. I do not see [place] dence for sizable filling defect to suggest pulmonary embolic process. LUNGS: The lungs are clear and free of infiltrate. No evidence for atelectasis. No pulmonary nodule or mass is detected. No pleural effusion. MEDIASTINUM: Thoracic aorta is of normal caliber,however, evaluation is limited given timing of the contrast bolus. If there is concern for thoracic aortic pathology consider LOUIE. Correlate clinicall y . The heart is not enlarged. No evidence for mediastinal mass. No mediastinal lymph nodes greater than 1cm. HILAR STRUCTURES: No evidence for mass. No hilar lymph nodes greater than 1 cm. UPPER ABDOMEN: No significant abnormality is seen. IMPRESSION: 1. No evidence for Pulmonary embolism at this time.
[2022-10-10 14:05] VITALS: BP 110/74; PULSE 72; RESP 18
== END 2022-10-10 14:05 | disposition home or self-care (01) ==
LOC: EC 10:25
DX: R79.9 Abnormal finding of blood chemistry, unspecified (principal); F41.9 Anxiety disorder, unspecified; Z86.711 Personal history of pulmonary embolism; Z79.82 Long term (current) use of aspirin; Z88.0 Allergy status to penicillin; Z86.16 Personal history of COVID-19
CPT/HCPCS: 36415; 93005; 85379; 80053; 84484; 85025; 85610; 85730; 93970; 71275; 99284; Q9967

== ENCOUNTER 2022-10-16 01:41 | Emergency (ER) | payer BC ==
[2022-10-16 01:47] VITALS: TEMP 97.4
[2022-10-16] MEDS ORDERED: ONDANSETRON 4 MG/2 ML VIAL IVP STA (01:49)
[2022-10-16] MEDS ORDERED: SODIUM CHLORIDE 0.9% 1,000 ML IV STA (01:49)
[2022-10-16] MEDS ORDERED: SODIUM CHLORIDE 0.9% 500 ML 500 ML IV STA (01:49)
[2022-10-16] MEDS ORDERED: MORPHINE SULFATE 4 MG/ML SYRINGE IV STA (01:49)
--- NOTE | 2022-10-16 01:50 | ED ---
Chest Pain HPI - General Chief Complaint: Chest Pain Stated Complaint: Chest pain, back pain Time Seen by Provider: 10/16/22 01:49 Source: patient, RN notes reviewed, old records reviewed Mode of arrival: ambulatory Limitations: no limitations - History of Present Illness Initial Comments: This is a 52-year-old male to the emergency department for evaluation patient presents today for evaluation of chest pain. Has epidural. Mild nausea no vomiting no fevers cough or congestion of travel history or sick contacts. Patient has no trauma. Patient states pain is persistent here in the ER patient does have history of PE DVT kidney stones. This does not feel like any of those prior events MD Complaint: chest pain -: days(s) Onset: during rest, during exertion Pain Location: substernal Pain Radiation: none Severity: moderate Severity scale (1-10): 7 Quality: aching, sharp Consistency: constant Improves With: nothing Worsens With: nothing Anginal Symptoms: nausea, dyspnea Other Symptoms: palpitations Treatments Prior to Arrival: none - Related Data Home Medications Medication Instructions Recorded Confirmed Aspirin EC [Ecotrin Low Dose] 81 mg PO DAILY 10/10/22 10/10/22 busPIRone HCL 10 mg PO BID 10/10/22 10/10/22 Allergies Allergy/AdvReac Type Severity Reaction Status Date / Time Penicillins Allergy Rash/Hives Verified 10/10/22 11:54 at waist line Review of Systems ROS Statement: Those systems with pertinent positive or pertinent negative responses have been documented in the HPI. ROS Other: All systems not noted in ROS Statement are negative. EKG Findings - EKG Comments: EKG Findings:: EKG interpreted by me shows sinus tachycardia 110 CT 159 QRS 92 QTC 376 Past Medical History Past Medical History: Deep Vein Thrombosis (DVT), Pulmonary Embolus (PE) Additional Past Medical History / Comment(s): kidney stones History of Any Multi-Drug Resistant Organisms: None Reported Past Surgical History: Bariatric Surgery Additional Past Surgical History / Comment(s): covid novembr 2020 Past Psychological History: No Psychological Hx Reported Smoking Status: Never smoker Past Alcohol Use History: Rare Past Drug Use History: None Reported General Exam Limitations: no limitations General appearance: alert, in no apparent distress, anxious Head exam: Present: atraumatic, normocephalic, normal inspection Eye exam: Present: normal appearance, PERRL, EOMI. Absent: scleral icterus, conjunctival injection, periorbital swelling ENT exam: Present: normal exam, mucous membranes dry, mucous membranes moist Neck exam: Present: normal inspection. Absent: tenderness, meningismus, lymphadenopathy Respiratory exam: Present: normal lung sounds bilaterally. Absent: respiratory distress, wheezes, rales, rhonchi, stridor Cardiovascular Exam: Present: normal rhythm, tachycardia, normal heart sounds. Absent: systolic murmur, diastolic murmur, rubs, gallop, clicks GI/Abdominal exam: Present: soft, normal bowel sounds. Absent: distended, tenderness, guarding, rebound, rigid Extremities exam: Present: normal inspection, full ROM, normal capillary refill. Absent: tenderness, pedal edema, joint swelling, calf tenderness Back exam: Present: normal inspection Neurological exam: Present: alert, oriented X3, CN II-XII intact Psychiatric exam: Present: normal affect, normal mood Skin exam: Present: warm, dry, intact, normal color. Absent: rash Course Vital Signs 10/16/22 10/16/22 01:43 03:20 Temperature 97.4 F L Pulse Rate 122 H 105 H Respiratory 18 15 Rate Blood Pressure 135/82 130/63 O2 Sat by Pulse 99 100 Oximetry - Reevaluation(s) Reevaluation #1: 10/16/22 04:29 Medical records reviewed Reevaluation #2: 10/16/22 04:29 A chest pains improved Reevaluation #3: 10/16/22 04:29 Patient informed of results questions answered Reevaluation #4: 10/16/22 04:29 Differential Chest Pain: Stable Angina, Unstable Angina, STEMI, NSTEMI Aortic Dissection, Pneumothorax, Musculoskeletal, Esophageal Spasm GERD, Cholecystitis, Pancreatitis, Zoster, this is not meant to be an all-inclusive list. Reevaluation #5: 10/16/22 04:29 Was pt. sent in by a medical professional or institution? @ -no Did you speak to anyone other than the patient for history? @ -no Did you review nursing and triage notes? @ -agree Were old charts reviewed? @ -prior troponin levels Differential Diagnosis? @ -prior EKG interpreted by me (3pts min.)? @ -[none] X-rays interpreted by me (1pt min.)? @ -yes CT interpreted by me (1pt min.)? @ -[none] U/S interpreted by me (1pt. min.)? @ -[none] What testing was considered but not performed? (CT, X-rays, U/S, labs)? Why? @ -none What meds were considered but not given? Why? @ -[none] Did you discuss the management of the patient with other professionals? @ -no Did you reconcile home meds? @ -[none] Was smoking cessation discussed for >3mins.? @ -[none] Was critical care preformed (if so, how long)? @ -[none] Were there social determinants of health that impacted care today? How? (Homelessness, low income, unemployed, alcoholism, drug addiction, transportation, low edu. Level, literacy, decrease access to med. care, [facility], rehab)? @ -no Was there de-escalation of care discussed even if they declined? (Discuss DNR or withdrawal of care, Hospice)? @ -no What co-morbidities impacted this encounter? (DM, HTN, Smoking, COPD, CAD, Cancer, CVA, Hep., AIDS, mental health diagnosis, sleep apnea, morbid obesity)? @ -no Was patient admitted / discharged? @ -admit Undiagnosed new problem with uncertain prognosis? @ -[none] Drug Therapy requiring intensive monitoring for toxicity (Heparin, Nitro, Insulin, Cardizem)? @ -[none] Were any procedures done? @ -[none] Diagnosis/symptom? @ -[default] Acute, or Chronic, or Acute on Chronic? @ -[default] Uncomplicated (without systemic symptoms) or Complicated (systemic symptoms)? @ -[default] Side effects of treatment? @ -[none] Exacerbation, Progression, or Severe Exacerbation] @ -[no] Poses a threat to life or bodily function? @ -[no] Chest Pain MDM - MDM 52 male nonspecific chest pain abdominal pain back pain. History of PE and kidney stones. CT negative for PE. Patient does have possible issues of early gallbladder disease but nothing significant. Patient can be discharged home Disposition Clinical Impression: Atypical chest pain, Chest pain, History of pulmonary embolism, Back pain Disposition: HOME SELF-CARE Condition: Good Instructions (If sedation given, give patient instructions): Back Pain (ED) Is patient prescribed a controlled substance at d/c from ED?: No Referrals: Lee Bran MD [Primary Care Provider] - 1-2 days Time of Disposition: 04:40
[2022-10-16 02:35] LABS: Basophils % (A) 0 %; Eosinophils # (A) 0.1 k/uL (0-0.7); Eosinophils % (A) 1 %; HCT 45.8 % (39.0-53.0); HGB 15.9 gm/dL (13.0-17.5); Lymphocytes # (A) 0.4 k/uL (1.0-4.8); Lymphocytes % (A) 4 %; MCH 29.8 pg (25.0-35.0); MCHC 34.7 g/dL (31.0-37.0); MCV 86.1 fL (80.0-100.0); Mean Platelet Volume 8.8; Monocytes # (A) 0.7 k/uL (0-1.0); Monocytes % (A) 7 %; Neutrophils # (A) 8.8 k/uL (1.3-7.7); Neutrophils % (A) 88 %; RBC 5.32 m/uL (4.30-5.90); RDW 13.2 % (11.5-15.5); WBC 10.1 k/uL (3.8-10.6)
[2022-10-16 02:38] LABS: ALT 422 U/L (4-49); AST 639 U/L (17-59); African American GFR (CKD) >90 (>60 ml/min/1.73 sqM); Albumin 4.5 g/dL (3.5-5.0); Alkaline Phosphatase 99 U/L (38-126); Anion Gap 7 mmol/L; Blood Urea Nitrogen 17 mg/dL (9-20); Calcium 9.2 mg/dL (8.4-10.2); Carbon Dioxide 23 mmol/L (22-30); Chloride 109 mmol/L (98-107); Glucose 119 mg/dL (74-99); Lipase 186 U/L (23-300); Magnesium 1.7 mg/dL (1.6-2.3); Non-African American GFR(CKD) >90 (>60 ml/min/1.73 sqM); Sodium 139 mmol/L (137-145); Total Bilirubin 2.1 mg/dL (0.2-1.3); Total Protein 7.5 g/dL (6.3-8.2)
[2022-10-16 02:40] LABS: Potassium 4.2 mmol/L (3.5-5.1)
[2022-10-16 02:59] LABS: INR 0.9 (<1.2)
[2022-10-16 03:04] LABS: Partial Thromboplastin Time 18.1 sec (22.0-30.0)
[2022-10-16 03:19] LABS: Platelet Count 93 k/uL (150-450)
[2022-10-16 03:21] VITALS: RESP 15
--- NOTE | 2022-10-16 04:21 | CT ---
EXAMINATION TYPE: CT abdomen pelvis w con DATE OF EXAM: 10/16/2022 COMPARISON: None HISTORY: chest & back pain, elevated d dimer, h/o PE CT DLP: 2317.4 mGycm Automated exposure control for dose reduction was used. CONTRAST: Performed with IV Contrast, patient injected with 100 mL of Isovue 370. Images obtained from the diaphragm to the floor the pelvis with the IV contrast. Lung bases are clear. No pleural effusion. Heart size is normal. No pericardial effusion. Liver and s pleen are intact. Gallbladder is intact. The bile ducts are not dilated. There is no evidence of panc reatic mass. There are clips from gastric bariatric surgery. There is no adrenal mass. Kidneys show s atisfactory contrast opacification. No hydronephrosis. Ureters are not dilated. No retroperitoneal ad enopathy. Appendix is inferior and appears normal. The bladder distends smoothly. No inguinal hernia. No free fluid in the pelvis. No pelvic mass. There are a few sigmoid diverticula. No diverticulitis. There is no mesenteric edema. No ascites or free air. No sign of a bowel obstruction. Lumbar vertebra e have normal alignment. Posterior elements are intact. No compression fracture. Bony pelvis is intac t. The hip joints are intact. Sacroiliac joints are intact. IMPRESSION: Negative CT scan abdomen and pelvis. No renal stone or obstruction. No dilated ducts. Normal appendix .
--- NOTE | 2022-10-16 04:29 | CT ---
EXAMINATION TYPE: CT angio chest DATE OF EXAM: 10/16/2022 COMPARISON: 10/10/2022 HISTORY: chest & back pain, elevated d dimer, h/o PE CT DLP: 923.2 mGycm Automated exposure control for dose reduction was used. CONTRAST: Performed with IV Contrast, patient injected with 100 mL of Isovue 370. There are Three-D postprocessed images. The lungs are clear of infiltrate. No pleural effusion or pneumothorax. Heart size is normal. No ev cardial effusion. There is no mediastinal adenopathy. Thoracic aorta is intact. No aneurysm. There is no evidence of filling defect in the pulmonary arteries. The thoracic spine is intact. No compression fracture. Sternum is intact. IMPRESSION: Negative exam. No evidence of pulmonary embolism. No suspicious pulmonary mass. No adverse change com pared to old exam.
[2022-10-16 04:42] VITALS: BP 134/69; PULSE 97
== END 2022-10-16 04:45 | disposition home or self-care (01) ==
LOC: EC 01:41
DX: R07.89 Other chest pain (principal); Z86.711 Personal history of pulmonary embolism; M54.9 Dorsalgia, unspecified; Z86.16 Personal history of COVID-19; Z79.82 Long term (current) use of aspirin; Z88.0 Allergy status to penicillin
CPT/HCPCS: 36415; 93005; 85379; 83880; 80053; 83690; 83735; 84484; 85025; 85610; 85730; 71275; 74177; 99285; 96374; 96375; 96361 ×2; J2270; J2405; Q9967

== ENCOUNTER 2022-12-07 13:50 | Emergency (ER) | payer BC ==
[2022-12-07 14:01] VITALS: PULSE 78
--- NOTE | 2022-12-07 14:55 | US ---
EXAMINATION TYPE: US venous doppler duplex LE RT DATE OF EXAM: 12/07/2022 2:39 PM COMPARISON: Bilateral lower extremity venous ultrasound 10/10/2022. CLINICAL HISTORY: right mid thigh pain hx dvt and pe. Right thigh pain, history of DVT SIDE PERFORMED: right TECHNIQUE: The lower extremity deep venous system is examined utilizing real time linear array sonog sheri with graded compression, doppler sonography and color-flow sonography. VESSELS IMAGED: Common Femoral Vein Deep Femoral Vein Greater Saphenous Vein * Femoral Vein Popliteal Vein Small Saphenous Vein * Proximal Calf Veins (* superficial vessels) Right Leg: *positive for DVT right popliteal vein, as on prior exam. There is thready flow demonstra tye within the distal popliteal artery with eccentric thrombus identified. Partial compressibility de monstrated. IMPRESSION: Similar chronic deep venous thrombosis of the distal right popliteal vein. No new acute r ight lower extremity deep venous thrombosis.
--- NOTE | 2022-12-07 15:35 | ED ---
Extremity Problem HPI - General Chief complaint: Extremity Problem,Nontraumatic Stated complaint: poss DVT rt leg Time Seen by Provider: 12/07/22 15:12 Source: patient Mode of arrival: ambulatory Limitations: no limitations - History of Present Illness Initial comments: This patient is a 52-year-old man with history of DVT/PE who presents to have evaluation of right thigh pain. He states that it had come on approximately 2 days ago. He notes that there is tenderness in the muscle. It's a little worse when he uses the muscle otherwise the pain is not bad. He states it is not identical to previous DVT pain but he is extra cautious as she had a large PE associated. Patient not currently taking anticoagulation. No chest symptoms. No fever or chills, dyspnea, palpitations, lightheadedness or syncope, hemoptysis or any other symptoms. MD Complaint: extremity pain Onset/Timin -: days(s) Location: right, lower extremity History of Same: Yes -: Yes myalgia Radiation: none Quality: aching Consistency: constant Improves with: nothing Worsens with: palpation Associated Symptoms: denies other symptoms - Related Data Home Medications Medication Instructions Recorded Confirmed Aspirin EC [Ecotrin Low Dose] 81 mg PO DAILY 10/10/22 10/10/22 busPIRone HCL 10 mg PO BID 10/10/22 10/10/22 Allergies Allergy/AdvReac Type Severity Reaction Status Date / Time Penicillins Allergy Rash/Hives Verified 10/10/22 11:54 at waist line Review of Systems ROS Statement: Those systems with pertinent positive or pertinent negative responses have been documented in the HPI. ROS Other: All systems not noted in ROS Statement are negative. Constitutional: Denies: fever, chills, weakness Respiratory: Denies: cough, dyspnea, hemoptysis Cardiovascular: Denies: chest pain, palpitations, edema, syncope Gastrointestinal: Denies: abdominal pain, vomiting Skin: Denies: rash Neurological: Denies: headache, weakness, numbness, paresthesias Past Medical History Past Medical History: Deep Vein Thrombosis (DVT), Pulmonary Embolus (PE) Additional Past Medical History / Comment(s): kidney stones History of Any Multi-Drug Resistant Organisms: None Reported Past Surgical History: Bariatric Surgery Additional Past Surgical History / Comment(s): covid novembr 2020 Past Psychological History: No Psychological Hx Reported Smoking Status: Never smoker Past Alcohol Use History: Rare Past Drug Use History: None Reported General Exam Limitations: no limitations General appearance: alert, in no apparent distress Cardiovascular Exam: Present: regular rate. Absent: tachycardia Extremities exam: Present: normal inspection, full ROM, normal capillary refill, other (There is no palpable cord or Homans sign). Absent: tenderness, pedal edema, calf tenderness Back exam: Present: normal inspection Neurological exam: Present: alert. Absent: motor sensory deficit Skin exam: Present: warm, dry, intact, normal color. Absent: rash Course Vital Signs 12/07/22 13:59 Temperature 98.5 F Pulse Rate 78 Respiratory 16 Rate Blood Pressure 144/87 O2 Sat by Pulse 98 Oximetry Medical Decision Making - Medical Decision Making Patient is 52-year-old man with history of previous DVT/PE. He completed the anticoagulation and has been off the medication now for 6 months. He states that he is probably extra cautious as he has had a total of about 8 or 10 on duplex ultrasounds related leg pains. No associated symptoms with this one. He has had a duplex Doppler today interpreted by the radiologist as no acute DVT. We discussed appropriate further care and follow-up as well as return parameters. Was pt. sent in by a medical professional or institution (, PA, FURNITURE CLEANER, urgent care, hospital, or residential...) When possible be specific @ -[Advised by his physician to be seen for leg pains Did you speak to anyone other than the patient for history (EMS, parent, family, police, friend...)? What history was obtained from this source @ -[No] Did you review nursing and triage notes (agree or disagree)? Why? @ -[I reviewed and agree with nursing and triage notes] Were old charts reviewed (outside hosp., previous admission, EMS record, old EKG, old radiological studies, urgent care reports/EKG's, residential records)? Report findings @ -[No old charts were reviewed] Differential Diagnosis (chest pain, altered mental status, abdominal pain women, abdominal pain men, vaginal bleeding, weakness, fever, dyspnea, syncope, headache, dizziness, GI bleed, back pain, seizure, CVA, palpatations, mental health, musculoskeletal)? @ -[Differential Musculoskeletal Muscular strain, contusion, ligament sprain, fracture, arthritis, septic arthritis, bursitis, cellulitis, muscle spasm, nerve compression, DVT, arterial occlusion, herpes zoster, electrolyte abnormality, tumor.... This is not meant to be in all inclusive list EKG interpreted by me (3pts min.). @ -[None X-rays interpreted by me (1pt min.). @ -[None done] CT interpreted by me (1pt min.). @ -[None done] U/S interpreted by me (1pt. min.). @ -[By radiology What testing was considered but not performed or refused? (CT, X-rays, U/S, labs)? Why? @ -[None] What meds were considered but not given or refused? Why? @ -[None] Did you discuss the management of the patient with other professionals (professionals i.e. , PA, FURNITURE CLEANER, lab, RT, psych nurse, manager social services, woods rider, teacher, property disposal officer, senior case manager)? Give summary @ -[No] Was smoking cessation discussed for >3mins.? @ -[No] Was critical care preformed (if so, how long)? @ -[No] Were there social determinants of health that impacted care today? How? (Homelessness, low income, unemployed, alcoholism, drug addiction, transportation, low edu. Level, literacy, decrease access to med. care, care home, rehab)? @ -[No] Was there de-escalation of care discussed even if they declined (Discuss DNR or withdrawal of care, Hospice)? DNR status @ -[No] What co-morbidities impacted this encounter? (DM, HTN, Smoking, COPD, CAD, Cancer, CVA, ARF, Chemo, Hep., AIDS, mental health diagnosis, sleep apnea, morbid obesity)? @ -[None] Was patient admitted / discharged? Hospital course, mention meds given and route, prescriptions, significant lab abnormalities, going to OR and other pertinent info. @ -[Discharged Undiagnosed new problem with uncertain prognosis? @ -[No] Drug Therapy requiring intensive monitoring for toxicity (Heparin, Nitro, Insulin, Cardizem)? @ -[No] Were any procedures done? @ -[No] Diagnosis/symptom? @ -[Acute right leg musculoskeletal pain Acute, or Chronic, or Acute on Chronic? @ -[default] Uncomplicated (without systemic symptoms) or Complicated (systemic symptoms)? @ -[Uncomplicated Side effects of treatment? @ -[No] Exacerbation, Progression, or Severe Exacerbation? @ -[No] Poses a threat to life or bodily function? How? (Chest pain, [place], [place], pneumonia, PE, COPD, DKA, ARF, appy, cholecystitis, CVA, Diverticulitis, Homicidal, Suicidal, threat to staff... and all critical care pts) @ -[No] Disposition Clinical Impression: Leg pain Disposition: HOME SELF-CARE Condition: Good Instructions (If sedation given, give patient instructions): Leg Pain (ED) Is patient prescribed a controlled substance at d/c from ED?: No Referrals: Lee Bran MD [Primary Care Provider] - 1-2 days
[2022-12-07 15:44] VITALS: BP 130/81; RESP 18; TEMP 98.8
== END 2022-12-07 15:43 | disposition home or self-care (01) ==
LOC: EC 13:50
DX: M79.651 Pain in right thigh (principal); Z86.718 Personal history of other venous thrombosis and embolism; Z88.0 Allergy status to penicillin; Z79.82 Long term (current) use of aspirin; Z86.16 Personal history of COVID-19
CPT/HCPCS: 99283; 99284